=== PATIENT | female | born 1975 | race Caucasian/White ===

== ENCOUNTER 2016-04-12 18:07 | Inpatient (IN) | payer OTHER, BC ==
[~2016-04-12] VITALS: Ht 165.1 cm; Wt 94.1 kg
[~2016-04-12 18:07] MED LIST: ACAR100T9 PO; ASPI1TAB PO; CETI10CA PO; CLIN-44 PO; CYCL5TAB PO; HYDR-2666 PO; IBUP-1027 PO; INSU100I13 SQ; LEVO1TBD PO; LORA10TA68 PO; METF10002 PO; METO10TA81 PO; PRED50TA PO
[2016-04-12] MEDS ORDERED: VANCOMYCIN 1.75 GM in IV NORMAL SALINE 500ML BAG 500 ML IV ONE (19:00)
[2016-04-12] MEDS ORDERED: IV NORMAL SALINE 1000ML BAG 1,000 ML IV ONE (19:00)
[2016-04-12 19:16] LABS: BASO % 0 % (0-3); EOS % 2 % (0-3); HEMATOCRIT 43.6 % (36.0-47.0); HEMOGLOBIN 14.3 g/dL (12.0-15.5); LYMPH # 2.7 x10^3/uL (1.0-4.8); LYMPH % 24 % (24-48); MEAN CORPUSCULAR HEMOGLOBIN 27 pg (25-35); MEAN CORPUSCULAR HGB CONC 33 g/dL (31-37); MEAN CORPUSCULAR VOLUME 83 fL (79-100); MONO % 6 % (0-9); NEUT % 69 % (31-73); PLATELET COUNT 389 x10^3/uL (140-400); RED BLOOD COUNT 5.28 x10^6/uL (3.50-5.40); WHITE BLOOD COUNT 11.4 x10^3/uL (4.0-11.0)
[2016-04-12] MEDS ORDERED: METO50TA2 PO (19:19)
[2016-04-12] MEDS ORDERED: GABA-586 PO (19:19)
[2016-04-12] MEDS ORDERED: HYDR50TA6 PO (19:21)
[2016-04-12] MEDS ORDERED: GLIP10TA13 PO (19:22)
[2016-04-12 19:24] LABS: CALCIUM 9.2 mg/dL (8.5-10.1); CREATININE 0.8 mg/dL (0.6-1.0); GFR 80.3; POTASSIUM 3.2 mmol/L (3.5-5.1)
[2016-04-12] MEDS ORDERED: DOXY100C2 PO (19:25)
[2016-04-12] MEDS ORDERED: HYDR25TA PO (19:25)
[2016-04-12] MEDS ORDERED: DAPA10TA PO (19:25)
[2016-04-12] MEDS ORDERED: ONDANSETRON PF 4 MG/2 ML VIAL. IV PRN ×2 (19:30→19:45)
[2016-04-12] MEDS ORDERED: ACETAMINOPHEN 325 MG TABLET. PO PRN ×2 (19:30→19:45)
--- NOTE | 2016-04-12 19:34 | PHYS DOC ---
Past Medical History Past Medical History: Diabetes-Type II, Hypertension Additional Past Medical Histor: Gastroparesis Past Surgical History: Additional Past Surgical Histo: Laparoscopy, D&C Alcohol Use: None Drug Use: None Adult General Chief Complaint Chief Complaint: CELLULITIS HPI HPI This is a 40-year-old female with known history of diabetes that's had an ongoing facial cellulitis that has not resolved despite taking multiple antibiotics. Patient states she has finished a course of Keflex and Clindamycin as well as several IM injections of Rocephin. Patient additionally states she is on day 2 of a course of doxycycline but states the redness and pain to her face has worsened. She additionally was seen by dental coordinator and had wound cultures that were negative for staph and showed only RBCs. She denies any fever or chills. She denies any nausea or vomiting. She denies any significant headache. She additionally states she recently had a CT of her maxillofacial area that did not demonstrate any significant findings other than her ongoing cellulitis. Review of Systems Review of Systems Constitutional: Denies fever or chills [] Eyes: Denies change in visual acuity, redness, or eye pain [] HENT: Denies nasal congestion or sore throat [] Respiratory: Denies cough or shortness of breath [] Cardiovascular: No additional information not addressed in HPI [] GI: Denies abdominal pain, nausea, vomiting, bloody stools or diarrhea [] : Denies dysuria or hematuria [] Musculoskeletal: Denies back pain or joint pain [] Integument: Denies rash or skin lesions [] Neurologic: Denies headache, focal weakness or sensory changes [] Endocrine: Denies polyuria or polydipsia [] Allergies Allergies Allergies Coded Allergies Type Severity Reaction Last Updated Verified Sulfa (Sulfonamide Antibiotics) Allergy Intermediate 01/25/14 No piperacillin Allergy Intermediate HIVES 04/01/16 Yes strawberry Allergy Intermediate 01/25/14 No tazobactam Allergy Intermediate HIVES 04/01/16 Yes Physical Exam Physical Exam Constitutional: Well developed, well nourished, no acute distress, non-toxic appearance. [] HENT: Normocephalic, large amount of redness and tenderness to palpation of the central portion of the face, bilateral external ears normal, oropharynx moist, no oral exudates, nose normal. [] Eyes: PERRLA, EOMI, conjunctiva normal, no discharge. [] Neck: Normal range of motion, no tenderness, supple, no stridor. [] Cardiovascular:Heart rate regular rhythm, no murmur [] Lungs & Thorax: Bilateral breath sounds clear to auscultation [] Abdomen: Bowel sounds normal, soft, no tenderness, no masses, no pulsatile masses. [] Skin: Warm, dry, no erythema, no rash. [] Back: No tenderness, no CVA tenderness. [] Extremities: No tenderness, no cyanosis, no clubbing, ROM intact, no edema. [] Neurologic: Alert and oriented X 3, normal motor function, normal sensory function, no focal deficits noted. [] Psychologic: Affect normal, judgement normal, mood normal. [] Current Patient Data Vital Signs Vital Signs Date Time Temp Pulse Resp B/P Pulse Ox O2 Delivery O2 Flow Rate FiO2 04/12/16 18:29 100 20 162/97 98 Room Air EKG EKG [] Radiology/Procedures Radiology/Procedures [] Course & Med Decision Making Course & Med Decision Making Pertinent Labs and Imaging studies reviewed. (See chart for details) This 32-year-old female with ongoing facial cellulitis will be admitted to the hospital with a infectious disease consult. Her bloodwork reveals a slightly elevated white count of 11 but no other acute findings. I ordered the patient a dose of IV vancomycin and discuss the need for admission with the hospitalist, Dr. Clemente, who agreed to accept the patient with infectious disease consult. Her infection is consistent with erisepylas that is resistant to multiple oral antibiotics. Dragon Disclaimer Dragon Disclaimer This electronic medical record was generated, in whole or in part, using a voice recognition dictation system. Departure Departure Impression: Primary Impression: Facial cellulitis Disposition: ADMITTED INPATIENT Admitting Physician: Augustina Clemente Condition: STABLE Referrals: YASSINE DELANEY MD (PCP) TONYA LOPEZ DO Apr 12, 2016 19:34
--- NOTE | 2016-04-12 19:38 | PDOC1 ---
History and Physical Date of Admission Date of Admission 04/12/16 Identification/Chief Complaint Chief Complaint facial redness Problems: Source Source: Chart review, Patient History of Present Illness History of Present Illness Patient is a 40 year old female who presents with cellulitis to ER for 16days. Pt came to ER before ,for same reason, also fu with PCP dr. Colunga and Derm dr. Solis in the past 2 weeks. Was given keflex for 7days, then clinda, then rocephin IM, currently on doxy for 2 days, also took prednisone for 5days , felt good with it for 2 days. Denies fever, chills, cough sob. She was also started with gabapentin for 2 days, feels the facial pain is slightly better. However, she still feels pretty much pain, and redness never better, so came today. Also tried multiple local treatment wo improvement. 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 Past Medical History Cardiovascular: HTN GI: Other Renal/: Other Endocrine: Diabetes Past Surgical History Past Surgical History: , Other Family History Family History: Cancer, Hypertension Social History Smoke: No ALCOHOL: none Drugs: None Current Problem List Problem List Problems Medical Problems: (1) Cellulitis Status: Acute Current Medications Current Medications Current Medications Medications (Trade) Dose Ordered Sig/Ryley Start Time Stop Time Status Last Admin Dose Admin Sodium Chloride (Iv Sodium Chloride 0.9% 1000ml Bag) 1,000 ml @ 100 mls/hr 1X ONCE 04/12/16 19:00 04/13/16 04:59 04/12/16 19:14 100 MLS/HR Vancomycin HCl 1.75 gm/Sodium Chloride 500 ml @ 250 mls/hr 1X ONCE 04/12/16 19:00 04/12/16 20:59 04/12/16 19:12 250 MLS/HR Allergies Allergies Allergies Coded Allergies Type Severity Reaction Last Updated Verified Sulfa (Sulfonamide Antibiotics) Allergy Intermediate 01/25/14 No piperacillin Allergy Intermediate HIVES 04/01/16 Yes strawberry Allergy Intermediate 01/25/14 No tazobactam Allergy Intermediate HIVES 04/01/16 Yes ROS Review of System CONSTITUTIONAL: No fever or chills EYES: No recent changes SKIN: No rash or itching CARDIOVASCULAR: No chest pain, syncope, palpitations, or edema RESPIRATORY: No SOB or cough GASTROINTESTINAL: No nausea, vomiting or abdominal pain NEUROLOGICAL: No headaches or weakness ENDOCRINE: No cold or heat intolerance GENITOURINARY: No urgency or frequency of urination MUSCULOSKELETAL: No back pain or joint pain LYMPHATICS: No enlarged lymph nodes PSYCHIATRIC: No anxiety or depression Physical Exam Physical Exam GEN.: No apparent distress. Alert and oriented. HEENT: Head is normocephalic, atraumatic NECK: Supple. LUNGS: Clear to auscultation. HEART: RRR, S1, S2 present. Peripheral pulses intact ABDOMEN: Soft, nontender. Positive bowel sounds. EXTREMITIES: Without any cyanosis. NEUROLOGIC: Normal speech, normal tone PSYCHIATRIC: Normal affect, normal mood. SKIN: middle face including the nose is bright erythematous, with tenderness. no exudate now, but said has it before. Vitals Vitals Vital Signs Date Time Temp Pulse Resp B/P Pulse Ox O2 Delivery O2 Flow Rate FiO2 04/12/16 18:29 100 20 162/97 98 Room Air Labs Labs Laboratory Tests Test 04/12/16 19:00 White Blood Count 11.4x10^3/uL (4.0-11.0) Red Blood Count 5.28x10^6/uL (3.50-5.40) Hemoglobin 14.3g/dL (12.0-15.5) Hematocrit 43.6% (36.0-47.0) Mean Corpuscular Volume 83fL (79-100) Mean Corpuscular Hemoglobin 27pg (25-35) Mean Corpuscular Hemoglobin Concent 33g/dL (31-37) Red Cell Distribution Width 13.0% (11.5-14.5) Platelet Count 389x10^3/uL (140-400) Neutrophils (%) (Auto) 69% (31-73) Lymphocytes (%) (Auto) 24% (24-48) Monocytes (%) (Auto) 6% (0-9) Eosinophils (%) (Auto) 2% (0-3) Basophils (%) (Auto) 0% (0-3) Neutrophils # (Auto) 7.8x10^3uL (1.8-7.7) Lymphocytes # (Auto) 2.7x10^3/uL (1.0-4.8) Monocytes # (Auto) 0.7x10^3/uL (0.0-1.1) Eosinophils # (Auto) 0.2x10^3/uL (0.0-0.7) Basophils # (Auto) 0.0x10^3/uL (0.0-0.2) Laboratory Tests Test 04/12/16 19:00 White Blood Count 11.4x10^3/uL (4.0-11.0) Red Blood Count 5.28x10^6/uL (3.50-5.40) Hemoglobin 14.3g/dL (12.0-15.5) Hematocrit 43.6% (36.0-47.0) Mean Corpuscular Volume 83fL (79-100) Mean Corpuscular Hemoglobin 27pg (25-35) Mean Corpuscular Hemoglobin Concent 33g/dL (31-37) Red Cell Distribution Width 13.0% (11.5-14.5) Platelet Count 389x10^3/uL (140-400) Neutrophils (%) (Auto) 69% (31-73) Lymphocytes (%) (Auto) 24% (24-48) Monocytes (%) (Auto) 6% (0-9) Eosinophils (%) (Auto) 2% (0-3) Basophils (%) (Auto) 0% (0-3) Neutrophils # (Auto) 7.8x10^3uL (1.8-7.7) Lymphocytes # (Auto) 2.7x10^3/uL (1.0-4.8) Monocytes # (Auto) 0.7x10^3/uL (0.0-1.1) Eosinophils # (Auto) 0.2x10^3/uL (0.0-0.7) Basophils # (Auto) 0.0x10^3/uL (0.0-0.2) VTE Prophylaxis Ordered VTE Prophylaxis Devices: Yes VTE Pharmacological Prophylaxi: Yes Assessment/Plan Assessment/Plan 1. facial redness, 2/2 cellulitis/erysipelas 2. dm2 3. HTN 4. gastroparesis plan: 1. will get ID consult 2. will start with vanco and meropenum for now 3. cont home meds, SSI,slightly decrease lantus to 30u qhs dvt ppx ISAIAH BENITEZ MD Apr 12, 2016 19:38
[2016-04-12] MEDS ORDERED: VANCOMYCIN PER PHARMACY MC PRN (19:45)
[2016-04-12] MEDS ORDERED: NON FORMULARY ITEM (Loratadine (Claritin) 10 MG) PO PRN (19:45)
[2016-04-12] MEDS ORDERED: DEXTROSE 50% 25 GM / 50ML DISP.SYRIN. IV PRN (19:45)
[2016-04-12] MEDS ORDERED: ASA/APAP/CAFFEINE 250/250/65MG TABLET. PO PRN (19:45)
[2016-04-12] MEDS ORDERED: METOCLOPRAMIDE 10 MG TABLET PO PRN (19:45)
[2016-04-12] MEDS ORDERED: POTASSIUM CHLORIDE 20 MEQ TABLET.ER. PO ONE (20:00)
[2016-04-12] MEDS ORDERED: CYCLOBENZAPRINE 10 MG TABLET. PO PRN (20:00)
[2016-04-12] MEDS: HYDROXYZINE PAMOATE 25 MG CAPSULE PO SCH ×2 (21:00→21:37)
[2016-04-12] MEDS ORDERED: INSULIN DETEMIR 300 UNITS/3 ML INSULN.PEN. SQ SCH (21:00)
[2016-04-12] MEDS: METFORMIN 1,000 MG TABLET PO SCH (21:00)
[2016-04-12] MEDS: MEROPENEM 500 MG in IV NORMAL SALINE 50ML 50 ML IV SCH (21:36)
[2016-04-12] MEDS: GABAPENTIN 300 MG CAPSULE. PO SCH (21:37)
[2016-04-12 22:07] VITALS: BP 144/89
[2016-04-12 22:46] VITALS: BP 144/89
--- NOTE | 2016-04-12 23:17 | ACF ---
Admission Forms Criteria CELLULITIS Clinical Indications for Admission to Inpatient Care (Place 'X' for any and all applicable criteria): Admission is indicated for ANY ONE of the following(1)(2)(3)(4)(5): [ ]I. Limb-threatening infection [ ]II. High-risk comorbid condition as indicated by ANY ONE of the following: [ ]a) Uncontrolled diabetes (eg, HbA1c greater than 10% (0.1)) [ ]b) Cirrhosis [ ]c) Neutropenia [ ]d) Asplenia [ ]e) Immunosuppression [ ]f) Symptomatic heart failure [ ]III. Failure of outpatient therapy as indicated by ALL of the following: [ ]a) Progression or no improvement after adequate trial (minimum of 48 hours, with longer period for stable lower extremity infection) [ ]b) Adequate antibiotic regimen as indicated by use of ANY ONE of the following: [ ]i) First-generation cephalosporin (e.g., cephalexin) [ ]ii) Antistaphylococcal penicillin (e.g., dicloxacillin) [ ]iii) Penicillin-allergic patient regimen (clindamycin, extended-spectrum fluoroquinolone, or doxycycline) [ ]iv) Resistant organism (eg, methicillin-resistant Staphylococcus aureus) regimen (6) [ ]c) Outpatient intravenous therapy regimen is not appropriate due to ANY ONE of the following. (7)(8)(9)(10): [ ]i) It was tried and was not successful (eg, progression of infection). [ ]ii) It is not available or cannot be arranged in a clinically appropriate time frame (e.g., the next day). [ ]iii) Clinical presentation (eg, acuity of infection, rapidity of progression, confirmed or suspected bacteremia) is judged to require ALL of the following: [ ]1) Immediate initiation of intravenous therapy ( eg, cannot wait for next day) [ ]2) Intensity of patient monitoring and observation (eg, vital sign measurement, checks for infection progression) that cannot be provided at other than inpatient level of care [ ]IV. Mental status changes [ ]V. Bacteremia [ ]. Hemodynamic instability [ ]VII. Suspected necrotizing soft tissue infection (e.g., gas in tissue)(11)( 12) [ ]VIII. Orbital infection (13)(14) [ ]IX. Associated surgical procedure (e.g., abscess drainage, debridement) not amenable to outpatient, emergency department, or observation care [ ]X. Cutaneous gangrene [ ]XI. High fever (temperature greater than 39.5 degrees C (103.1 degrees F) (oral)) not responsive to outpatient, emergency department, or observation care therapy [X]XIII. Inpatient admission required rather than observation care (Also use Cellulitis: Observation Care as appropriate) because of ANY ONE of the following : [ ]a) Periorbital or perineal infection that is severe or worsening [ ]b) Severe pain requiring acute inpatient management [ ]c) IV fluid to replace significant ongoing (e.g., for over 24 hours) losses (greater than 3L/m2 per day) [ ]d) Compartment syndrome monitoring (17) [ ]e) Strict or protective (eg, laminar flow) isolation [ ]f) Urgent debridement or skin grafting [ ]g) Bone or joint debridement [ ]h) Immediate inpatient surgery [X]i) Other condition, treatment or monitoring requiring inpatient admission Extended stay beyond goal length of stay may be needed for (1)(18): [ ]a) Necrotizing soft tissue infection or fasciitis [ ]b) Gram-negative infection [ ]c) Methicillin-resistant Staphylococcal aureus (MRSA) infection [ ]d) Peripheral venous insufficiency with cellulitis [ ]e) Extensive edema [ ]f) Sepsis or continued Hemodynamic instability [ ]g) Continued high fever or mental status change [ ]h) Bacteremia [ ]i) Active serious comorbid conditions ( eg, heart failure, renal insufficiency) The original [employer] content created by [employer] has been revised. The portions of the content which have been revised are identified through the use of italic text or in bold, and [facility] has neither reviewed nor approved the modified material. All other unmodified content is copyright [employer] Please see references footnoted in the original [employer] edition 2016 Admission Criteria Met?: Yes ZOHAIB FLORES Apr 12, 2016 23:17
[2016-04-13] MEDS ORDERED: CETIRIZINE HCL 10 MG TABLET PO PRN (02:15)
[2016-04-13] MEDS ORDERED: VANCOMYCIN 1.5 GM in IV NORMAL SALINE 500ML BAG 500 ML IV SCH (03:00)
[2016-04-13 03:07] VITALS: BP 139/79
[2016-04-13] MEDS: MEROPENEM 500 MG in IV NORMAL SALINE 50ML 50 ML IV SCH ×3 (05:25→23:11)
[2016-04-13] MEDS: IV NORMAL SALINE 1000ML BAG 1,000 ML IV SCH ×2 (05:29→05:35)
[2016-04-13 05:37] LABS: BASO # 0.1 x10^3/uL (0.0-0.2); BASO % 1 % (0-3); EOS % 2 % (0-3); HEMATOCRIT 38.1 % (36.0-47.0); HEMOGLOBIN 12.7 g/dL (12.0-15.5); LYMPH % 29 % (24-48); MEAN CORPUSCULAR HEMOGLOBIN 28 pg (25-35); MEAN CORPUSCULAR HGB CONC 33 g/dL (31-37); MEAN CORPUSCULAR VOLUME 83 fL (79-100); MONO % 8 % (0-9); NEUT % 60 % (31-73); PLATELET COUNT 319 x10^3/uL (140-400); RED BLOOD COUNT 4.61 x10^6/uL (3.50-5.40); RED CELL DISTRIBUTION WIDTH 13.3 % (11.5-14.5); WHITE BLOOD COUNT 10.4 x10^3/uL (4.0-11.0)
[2016-04-13 05:50] LABS: CALCIUM 8.4 mg/dL (8.5-10.1); CREATININE 0.7 mg/dL (0.6-1.0); GFR 93.6
[2016-04-13 07:15] VITALS: BP 133/88
[2016-04-13] MEDS ORDERED: ACARBOSE 50 MG TABLET PO SCH (08:00)
[2016-04-13] MEDS: INSULIN ASPART 300 UNITS/3 ML INSULN.PEN SQ SCH ×3 (08:00→17:00)
[2016-04-13] MEDS: GLIPIZIDE 5 MG TABLET PO SCH ×2 (08:50→17:47)
[2016-04-13] MEDS: METFORMIN 1,000 MG TABLET PO SCH ×2 (08:50→17:47)
[2016-04-13] MEDS ORDERED: INSULIN DETEMIR 300 UNITS/3 ML INSULN.PEN. SQ SCH (09:00)
[2016-04-13] MEDS ORDERED: LEVONORGESTREL ETH ESTRADIOL PO SCH (09:00)
[2016-04-13] MEDS ORDERED: METOPROLOL TART IMMED RELEASE 50 MG TABLET PO SCH (09:00)
[2016-04-13] MEDS ORDERED: HYDROCHLOROTHIAZIDE 25 MG TABLET PO SCH (09:00)
[2016-04-13] MEDS ORDERED: (Dapagliflozin Propanediol (Farxiga) 10 MG) PO SCH (09:00)
--- NOTE | 2016-04-13 10:19 | PDOC ---
Infectious Disease Note Vital Sign Vital Signs Vital Signs Date Time Temp Pulse Resp B/P Pulse Ox O2 Delivery O2 Flow Rate FiO2 04/13/16 08:55 80 133/88 04/13/16 07:15 97.9 20 97 Room Air 97.9 Labs Lab Laboratory Tests Test 04/12/16 19:00 04/12/16 21:02 04/13/16 04:16 04/13/16 07:40 White Blood Count 11.4x10^3/uL (4.0-11.0) 10.4x10^3/uL (4.0-11.0) Red Blood Count 5.28x10^6/uL (3.50-5.40) 4.61x10^6/uL (3.50-5.40) Hemoglobin 14.3g/dL (12.0-15.5) 12.7g/dL (12.0-15.5) Hematocrit 43.6% (36.0-47.0) 38.1% (36.0-47.0) Mean Corpuscular Volume 83fL (79-100) 83fL (79-100) Mean Corpuscular Hemoglobin 27pg (25-35) 28pg (25-35) Mean Corpuscular Hemoglobin Concent 33g/dL (31-37) 33g/dL (31-37) Red Cell Distribution Width 13.0% (11.5-14.5) 13.3% (11.5-14.5) Platelet Count 389x10^3/uL (140-400) 319x10^3/uL (140-400) Neutrophils (%) (Auto) 69% (31-73) 60% (31-73) Lymphocytes (%) (Auto) 24% (24-48) 29% (24-48) Monocytes (%) (Auto) 6% (0-9) 8% (0-9) Eosinophils (%) (Auto) 2% (0-3) 2% (0-3) Basophils (%) (Auto) 0% (0-3) 1% (0-3) Neutrophils # (Auto) 7.8x10^3uL (1.8-7.7) 6.2x10^3uL (1.8-7.7) Lymphocytes # (Auto) 2.7x10^3/uL (1.0-4.8) 3.0x10^3/uL (1.0-4.8) Monocytes # (Auto) 0.7x10^3/uL (0.0-1.1) 0.8x10^3/uL (0.0-1.1) Eosinophils # (Auto) 0.2x10^3/uL (0.0-0.7) 0.2x10^3/uL (0.0-0.7) Basophils # (Auto) 0.0x10^3/uL (0.0-0.2) 0.1x10^3/uL (0.0-0.2) Sodium Level 137mmol/L (136-145) 140mmol/L (136-145) Potassium Level 3.2mmol/L (3.5-5.1) 3.0mmol/L (3.5-5.1) Chloride Level 97mmol/L (98-107) 103mmol/L (98-107) Carbon Dioxide Level 26mmol/L (21-32) 25mmol/L (21-32) Anion Gap 14 (6-14) 12 (6-14) Blood Urea Nitrogen 12mg/dL (7-20) 9mg/dL (7-20) Creatinine 0.8mg/dL (0.6-1.0) 0.7mg/dL (0.6-1.0) Estimated GFR (Cockcroft-Gault) 80.3 93.6 Glucose Level 133mg/dL (70-99) 109mg/dL (70-99) Calcium Level 9.2mg/dL (8.5-10.1) 8.4mg/dL (8.5-10.1) Glucose (Fingerstick) 77mg/dL (70-99) 99mg/dL (70-99) Objective Assessment Facial cellulitis Leukocytosis DM Plan Plan of Care meropenem and doxy for now Rheumatology consult to rule out Lupus AIMEE PEARSON MD Apr 13, 2016 10:19
[2016-04-13] MEDS: FLUCONAZOLE 100 MG TABLET. PO SCH (11:11)
[2016-04-13 11:13] VITALS: BP 124/85
--- NOTE | 2016-04-13 13:10 | PDOC ---
PROGRESS NOTES Chief Complaint Chief Complaint Facial cellulitis ASSESSMENT AND PLAN: 1. Facial erythema: appreciate Dr Catherine's input. Abx incl merrem and doxy. Rheum consult 2. DM2: welll controlled on home regimen. cont ISS 3. HTN: fair control on home metoprolol. not on CIERRA-I as diabetic? 4. Diabetic gastroparesis: reglan PRN 5. Hypokalemia: worse. replete PO and IV 6. Prophylaxis: loveox Vitals Vitals Vital Signs Date Time Temp Pulse Resp B/P Pulse Ox O2 Delivery O2 Flow Rate FiO2 04/13/16 11:13 98.0 80 20 124/85 98 Room Air 98.0 Physical Exam General: Alert, Oriented X3, Cooperative Heart: Regular rate Lungs: Clear Abdomen: Normal bowel sounds, Soft, No tenderness Extremities: No edema Skin: Other (erythema over malar pominences, nose and phyllum) Labs LABS Laboratory Tests Test 04/12/16 19:00 04/12/16 21:02 04/13/16 04:16 04/13/16 07:40 White Blood Count 11.4x10^3/uL (4.0-11.0) 10.4x10^3/uL (4.0-11.0) Red Blood Count 5.28x10^6/uL (3.50-5.40) 4.61x10^6/uL (3.50-5.40) Hemoglobin 14.3g/dL (12.0-15.5) 12.7g/dL (12.0-15.5) Hematocrit 43.6% (36.0-47.0) 38.1% (36.0-47.0) Mean Corpuscular Volume 83fL (79-100) 83fL (79-100) Mean Corpuscular Hemoglobin 27pg (25-35) 28pg (25-35) Mean Corpuscular Hemoglobin Concent 33g/dL (31-37) 33g/dL (31-37) Red Cell Distribution Width 13.0% (11.5-14.5) 13.3% (11.5-14.5) Platelet Count 389x10^3/uL (140-400) 319x10^3/uL (140-400) Neutrophils (%) (Auto) 69% (31-73) 60% (31-73) Lymphocytes (%) (Auto) 24% (24-48) 29% (24-48) Monocytes (%) (Auto) 6% (0-9) 8% (0-9) Eosinophils (%) (Auto) 2% (0-3) 2% (0-3) Basophils (%) (Auto) 0% (0-3) 1% (0-3) Neutrophils # (Auto) 7.8x10^3uL (1.8-7.7) 6.2x10^3uL (1.8-7.7) Lymphocytes # (Auto) 2.7x10^3/uL (1.0-4.8) 3.0x10^3/uL (1.0-4.8) Monocytes # (Auto) 0.7x10^3/uL (0.0-1.1) 0.8x10^3/uL (0.0-1.1) Eosinophils # (Auto) 0.2x10^3/uL (0.0-0.7) 0.2x10^3/uL (0.0-0.7) Basophils # (Auto) 0.0x10^3/uL (0.0-0.2) 0.1x10^3/uL (0.0-0.2) Sodium Level 137mmol/L (136-145) 140mmol/L (136-145) Potassium Level 3.2mmol/L (3.5-5.1) 3.0mmol/L (3.5-5.1) Chloride Level 97mmol/L (98-107) 103mmol/L (98-107) Carbon Dioxide Level 26mmol/L (21-32) 25mmol/L (21-32) Anion Gap 14 (6-14) 12 (6-14) Blood Urea Nitrogen 12mg/dL (7-20) 9mg/dL (7-20) Creatinine 0.8mg/dL (0.6-1.0) 0.7mg/dL (0.6-1.0) Estimated GFR (Cockcroft-Gault) 80.3 93.6 Glucose Level 133mg/dL (70-99) 109mg/dL (70-99) Calcium Level 9.2mg/dL (8.5-10.1) 8.4mg/dL (8.5-10.1) Glucose (Fingerstick) 77mg/dL (70-99) 99mg/dL (70-99) Test 04/13/16 11:30 Glucose (Fingerstick) 167mg/dL (70-99) Review of Systems Review of Systems erythema better acc. her. no fevers or chil Comment Review of Relevant I have reviewed the following items rianna (where applicable) has been applied. Labs Laboratory Tests Test 04/12/16 19:00 04/12/16 21:02 04/13/16 04:16 04/13/16 07:40 White Blood Count 11.4x10^3/uL (4.0-11.0) 10.4x10^3/uL (4.0-11.0) Red Blood Count 5.28x10^6/uL (3.50-5.40) 4.61x10^6/uL (3.50-5.40) Hemoglobin 14.3g/dL (12.0-15.5) 12.7g/dL (12.0-15.5) Hematocrit 43.6% (36.0-47.0) 38.1% (36.0-47.0) Mean Corpuscular Volume 83fL (79-100) 83fL (79-100) Mean Corpuscular Hemoglobin 27pg (25-35) 28pg (25-35) Mean Corpuscular Hemoglobin Concent 33g/dL (31-37) 33g/dL (31-37) Red Cell Distribution Width 13.0% (11.5-14.5) 13.3% (11.5-14.5) Platelet Count 389x10^3/uL (140-400) 319x10^3/uL (140-400) Neutrophils (%) (Auto) 69% (31-73) 60% (31-73) Lymphocytes (%) (Auto) 24% (24-48) 29% (24-48) Monocytes (%) (Auto) 6% (0-9) 8% (0-9) Eosinophils (%) (Auto) 2% (0-3) 2% (0-3) Basophils (%) (Auto) 0% (0-3) 1% (0-3) Neutrophils # (Auto) 7.8x10^3uL (1.8-7.7) 6.2x10^3uL (1.8-7.7) Lymphocytes # (Auto) 2.7x10^3/uL (1.0-4.8) 3.0x10^3/uL (1.0-4.8) Monocytes # (Auto) 0.7x10^3/uL (0.0-1.1) 0.8x10^3/uL (0.0-1.1) Eosinophils # (Auto) 0.2x10^3/uL (0.0-0.7) 0.2x10^3/uL (0.0-0.7) Basophils # (Auto) 0.0x10^3/uL (0.0-0.2) 0.1x10^3/uL (0.0-0.2) Sodium Level 137mmol/L (136-145) 140mmol/L (136-145) Potassium Level 3.2mmol/L (3.5-5.1) 3.0mmol/L (3.5-5.1) Chloride Level 97mmol/L (98-107) 103mmol/L (98-107) Carbon Dioxide Level 26mmol/L (21-32) 25mmol/L (21-32) Anion Gap 14 (6-14) 12 (6-14) Blood Urea Nitrogen 12mg/dL (7-20) 9mg/dL (7-20) Creatinine 0.8mg/dL (0.6-1.0) 0.7mg/dL (0.6-1.0) Estimated GFR (Cockcroft-Gault) 80.3 93.6 Glucose Level 133mg/dL (70-99) 109mg/dL (70-99) Calcium Level 9.2mg/dL (8.5-10.1) 8.4mg/dL (8.5-10.1) Glucose (Fingerstick) 77mg/dL (70-99) 99mg/dL (70-99) Test 04/13/16 11:30 Glucose (Fingerstick) 167mg/dL (70-99) Laboratory Tests Test 04/12/16 19:00 04/12/16 21:02 04/13/16 04:16 04/13/16 07:40 White Blood Count 11.4x10^3/uL (4.0-11.0) 10.4x10^3/uL (4.0-11.0) Red Blood Count 5.28x10^6/uL (3.50-5.40) 4.61x10^6/uL (3.50-5.40) Hemoglobin 14.3g/dL (12.0-15.5) 12.7g/dL (12.0-15.5) Hematocrit 43.6% (36.0-47.0) 38.1% (36.0-47.0) Mean Corpuscular Volume 83fL (79-100) 83fL (79-100) Mean Corpuscular Hemoglobin 27pg (25-35) 28pg (25-35) Mean Corpuscular Hemoglobin Concent 33g/dL (31-37) 33g/dL (31-37) Red Cell Distribution Width 13.0% (11.5-14.5) 13.3% (11.5-14.5) Platelet Count 389x10^3/uL (140-400) 319x10^3/uL (140-400) Neutrophils (%) (Auto) 69% (31-73) 60% (31-73) Lymphocytes (%) (Auto) 24% (24-48) 29% (24-48) Monocytes (%) (Auto) 6% (0-9) 8% (0-9) Eosinophils (%) (Auto) 2% (0-3) 2% (0-3) Basophils (%) (Auto) 0% (0-3) 1% (0-3) Neutrophils # (Auto) 7.8x10^3uL (1.8-7.7) 6.2x10^3uL (1.8-7.7) Lymphocytes # (Auto) 2.7x10^3/uL (1.0-4.8) 3.0x10^3/uL (1.0-4.8) Monocytes # (Auto) 0.7x10^3/uL (0.0-1.1) 0.8x10^3/uL (0.0-1.1) Eosinophils # (Auto) 0.2x10^3/uL (0.0-0.7) 0.2x10^3/uL (0.0-0.7) Basophils # (Auto) 0.0x10^3/uL (0.0-0.2) 0.1x10^3/uL (0.0-0.2) Sodium Level 137mmol/L (136-145) 140mmol/L (136-145) Potassium Level 3.2mmol/L (3.5-5.1) 3.0mmol/L (3.5-5.1) Chloride Level 97mmol/L (98-107) 103mmol/L (98-107) Carbon Dioxide Level 26mmol/L (21-32) 25mmol/L (21-32) Anion Gap 14 (6-14) 12 (6-14) Blood Urea Nitrogen 12mg/dL (7-20) 9mg/dL (7-20) Creatinine 0.8mg/dL (0.6-1.0) 0.7mg/dL (0.6-1.0) Estimated GFR (Cockcroft-Gault) 80.3 93.6 Glucose Level 133mg/dL (70-99) 109mg/dL (70-99) Calcium Level 9.2mg/dL (8.5-10.1) 8.4mg/dL (8.5-10.1) Glucose (Fingerstick) 77mg/dL (70-99) 99mg/dL (70-99) Test 04/13/16 11:30 Glucose (Fingerstick) 167mg/dL (70-99) Medications Current Medications Vancomycin HCl 1.75 gm/Sodium Chloride 500 ml @ 250 mls/hr 1X ONCE IV Last administered on 04/12/16 19:12; Start 04/12/16 at 19:00; Stop 04/12/16 at 20:59 ; Status DC Sodium Chloride (Iv Sodium Chloride 0.9% 1000ml Bag) 1,000 ml @ 100 mls/hr 1X ONCE IV Last administered on 04/12/16 19:14; Start 04/12/16 at 19:00; Stop at 11:21; Status DC Ondansetron HCl 4 mg 4 mg PRN Q8HRS PRN IV NAUSEA/VOMITING; Start 04/12/16 at 19:30; Stop 04/13/16 at 10:59; Status DC Sodium Chloride (Iv Sodium Chloride 0.9% 1000ml Bag) 1,000 ml @ 100 mls/hr Q10H IV Last administered on 04/13/16 05:35; Start 04/12/16 at 19:29; Stop at 11:21; Status DC Acetaminophen (Tylenol) 650 mg PRN Q4HRS PRN PO FEVER Last administered on 04/13 05:34; Start 04/12/16 at 19:30; Stop 04/13/16 at 10:59; Status DC Acetaminophen (Tylenol) 650 mg PRN Q6HRS PRN PO FEVER; Start 04/12/16 at 19:45 Ondansetron HCl (Zofran) 4 mg PRN Q6HRS PRN IV NAUSEA; Start 04/12/16 at 19:45 Acetaminophen/ Hydrocodone Bitart (Lortab 5/325) 1 tab PRN Q6HRS PRN PO PAIN MILD TO MOD; Start 04/12/16 at 19:45 Insulin Aspart (Novolog) 0-9 UNITS TIDWMEALS SQ ; Start 04/13/16 at 08:00 Dextrose 12.5 gm PRN Q15MIN PRN IV SEE COMMENTS; Start 04/12/16 at 19:45 Gabapentin (Neurontin) 300 mg HS PO Last administered on 04/12/16 21:37; Start 04/12/16 at 21:00 Metformin HCl (Glucophage) 1,000 mg BIDWMEALS PO Last administered on 08:50; Start 04/12/16 at 21:00; Stop 04/13/16 at 11:00; Status DC Metoclopramide HCl (Reglan) 10 mg PRN TID PRN PO INDIGESTION; Start 04/12/16 at 19:45 Metoprolol Tartrate (Lopressor) 50 mg DAILY PO Last administered on 04/13/16 08:55; Start 04/13/16 at 09:00; Stop 04/13/16 at 11:01; Status DC Acarbose (Precose) 100 mg TIDWMEALS PO ; Start 04/13/16 at 08:00; Stop 04/13/16 at 10:58; Status DC Acetaminophen/ Aspirin/Caffeine (Excedrin Migraine) 2 tab PRN BID PRN PO PAIN; Start 04/12/16 at 19:45 Cetirizine HCl (Zyrtec) 10 mg PRN DAILY PRN PO ALLERGIES Last administered on 02:18; Start 04/13/16 at 02:15 Cyclobenzaprine HCl (Flexeril) 5 mg PRN TID PRN PO MUSCLE PAIN; Start 04/12/16 at 20:00 Non-Formulary Medication 10 mg DAILY PO Last administered on 04/13/16 08:51; Start 04/13/16 at 09:00; Stop 04/13/16 at 11:01; Status DC Glipizide (Glucotrol) 10 mg BIDBFRMEAL PO Last administered on 04/13/16 08:50 ; Start 04/13/16 at 07:30 Hydrochlorothiazide (Hydrodiuril) 25 mg DAILY PO Last administered on 08:55; Start 04/13/16 at 09:00; Stop 04/13/16 at 11:00; Status DC Hydroxyzine Pamoate (Vistaril) 25 mg HS PO Last administered on 04/12/16 21:37 ; Start 04/12/16 at 20:00; Stop 04/13/16 at 00:17; Status DC Non-Formulary Medication 1 each DAILY PO Last administered on 04/13/16 08:52; Start 04/13/16 at 09:00; Stop 04/13/16 at 11:01; Status DC Non-Formulary Medication 10 mg PRN DAILY PRN PO ALLERGIES; Start 04/12/16 at 19 :45; Status UNV Insulin Detemir (Levemir) 30 units QHS SQ ; Start 04/12/16 at 21:00; Stop at 00:18; Status DC Vancomycin HCl 1 each 1 each PRN DAILY PRN MC SEE COMMENTS Last administered on 04/12/16 19:53; Start 04/12/16 at 19:45; Stop 04/13/16 at 10:12; Status DC Vancomycin HCl 1.5 gm/Sodium Chloride 500 ml @ 250 mls/hr Q8H IV Last administered on 04/13/16 02:21; Start 04/13/16 at 03:00; Stop 04/13/16 at 10:12 ; Status DC Meropenem/Sodium Chloride (Merrem/Iv Sodium Chloride 0.9% 50ml) 50 ml @ 100 mls /hr Q8HRS IV Last administered on 04/13/16 05:25; Start 04/12/16 at 22:00 Potassium Chloride (Klor-Con) 40 meq 1X ONCE PO Last administered on 21:37; Start 04/12/16 at 20:00; Stop 04/12/16 at 20:01; Status DC Vancomycin HCl 1 each 1X ONCE MC ; Start 04/13/16 at 18:30; Stop 04/13/16 at 18 :30; Status DC Hydroxyzine Pamoate (Vistaril) 25 mg DAILYWSUP PO ; Start 04/13/16 at 17:00 Insulin Detemir (Levemir) 30 units DAILY SQ ; Start 04/13/16 at 09:00; Stop at 10:58; Status DC Fluconazole (Diflucan) 400 mg DAILY PO Last administered on 04/13/16 11:11; Start 04/13/16 at 11:00 Insulin Detemir (Levemir) 40 units DAILY SQ ; Start 04/13/16 at 10:58 Hydrochlorothiazide (Hydrodiuril) 25 mg DAILY@05 PO ; Start 04/14/16 at 05:00 Metformin HCl (Glucophage) 1,000 mg BID@05,17 PO ; Start 04/13/16 at 17:00 Metoprolol Tartrate (Lopressor) 50 mg DAILY@05 PO ; Start 04/14/16 at 05:00 Non-Formulary Medication 10 mg DAILY@05 PO ; Start 04/14/16 at 05:00 Non-Formulary Medication 1 each DAILY@05 PO ; Start 04/14/16 at 05:00 Active Scripts Active Hydrocodone-Apap 5-325 (Hydrocodone Bit/Acetaminophen) 1 Each Tablet 1 Tab PO PRN Q6HRS PRN Prednisone 50 Mg Tablet 1 Tab PO DAILY Clindamycin Hcl 150 Mg Capsule 3 Cap PO TID 10 Days Reported Farxiga (Dapagliflozin Propanediol) 10 Mg Tablet 10 Mg PO DAILY Doxycycline Hyclate 100 Mg Capsule 1 Cap PO BID Hydroxyzine Hcl 25 Mg Tablet 1-2 Tab PO HS Glipizide 10 Mg Tablet 1 Tab PO BID Hydrochlorothiazide Tablet (Hydrochlorothiazide) 50 Mg Tablet 25 Mg PO DAILY Metoprolol Tartrate 50 Mg Tablet 1 Tab PO DAILY Gabapentin 300 Mg Capsule 300 Mg PO HS Ibuprofen 400 Mg Tablet 1 Tab PO PRN Q6HRS PRN Zyrtec (Cetirizine Hcl) 10 Mg Capsule 10 Mg PO PRN DAILY PRN Claritin (Loratadine) 10 Mg Tablet 10 Mg PO PRN DAILY PRN Jolessa (Levonorgestrel-Eth Estradiol) 1 Each Tbdspk.3mo 1 Each PO DAILY Analgesic Tablet (Aspirin/Caffeine) 1 Each Tablet 2 Each PO PRN BID PRN Reglan (Metoclopramide Hcl) 10 Mg Tablet 1 Tab PO TID PRN Cyclobenzaprine Hcl 5 Mg Tablet 5 Mg PO TID PRN Lantus Solostar (Insulin Glargine,Hum.rec.anlog) 100 Unit/1 Ml Insuln.pen 40 Unit SQ DAILY Precose (Acarbose) 100 Mg Tablet 100 Mg PO TID Metformin Hcl 1,000 Mg Tablet 1 Tab PO BID Vitals/I & O Vital Sign - Last 24 Hours 04/12/16 04/12/16 04/12/16 04/12/16 18:29 19:14 19:45 22:07 Temp 98.1 98.1 Pulse 100 85 Resp 20 20 B/P 162/97 128/90 127/89 144/89 Pulse Ox 98 98 O2 Delivery Room Air Room Air 04/12/16 04/12/16 04/13/16 04/13/16 22:46 22:56 03:07 07:15 Temp 98.1 97.9 97.9 98.1 97.9 97.9 Pulse 85 91 80 Resp 18 20 B/P 144/89 139/79 133/88 Pulse Ox 98 97 97 O2 Delivery Room Air Room Air Room Air 04/13/16 04/13/16 04/13/16 07:30 08:55 11:13 Temp 98.0 98.0 Pulse 80 80 Resp 20 B/P 133/88 124/85 Pulse Ox 98 O2 Delivery Room Air Room Air Intake and Output 04/12/16 04/12/16 04/13/16 14:59 22:59 06:59 Intake Total 875 ml Balance 875 ml MANISH FIGUEROA MD Apr 13, 2016 13:10
[2016-04-13 15:02] VITALS: BP 124/98
[2016-04-13 19:00] VITALS: BP 134/91
[2016-04-13] MEDS: HYDROXYZINE PAMOATE 25 MG CAPSULE PO SCH (19:53)
[2016-04-13] MEDS: GABAPENTIN 300 MG CAPSULE. PO SCH (19:53)
[2016-04-13 22:55] VITALS: BP 137/77
[2016-04-14 03:00] VITALS: BP 125/78
[2016-04-14] MEDS: LEVONORGESTREL ETH ESTRADIOL PO SCH (05:00)
[2016-04-14] MEDS: (Dapagliflozin Propanediol (Farxiga) 10 MG) PO SCH (05:00)
[2016-04-14] MEDS: MEROPENEM 500 MG in IV NORMAL SALINE 50ML 50 ML IV SCH ×3 (05:40→21:06)
[2016-04-14] MEDS: HYDROCHLOROTHIAZIDE 25 MG TABLET PO SCH (05:41)
[2016-04-14] MEDS: METFORMIN 1,000 MG TABLET PO SCH ×2 (05:41→17:11)
[2016-04-14] MEDS: METOPROLOL TART IMMED RELEASE 50 MG TABLET PO SCH (05:42)
[2016-04-14] MEDS: GLIPIZIDE 5 MG TABLET PO SCH ×2 (05:50→17:12)
[2016-04-14 07:00] VITALS: BP 120/84
[2016-04-14] MEDS: INSULIN ASPART 300 UNITS/3 ML INSULN.PEN SQ SCH ×3 (08:00→17:00)
[2016-04-14] MEDS: FLUCONAZOLE 100 MG TABLET. PO SCH (08:15)
[2016-04-14] MEDS: INSULIN DETEMIR 300 UNITS/3 ML INSULN.PEN. SQ SCH (08:19)
[2016-04-14] MEDS: HYDROCODONE/APAP 5/325MG TABLET. PO PRN ×2 (08:21→21:08)
--- NOTE | 2016-04-14 08:39 | PDOC ---
Infectious Disease Note Subjective Subjective pt about same, no change in rash, some swelling and pain in to lips ROS ROS GEN: Denies fevers, chills, sweats HEENT: Denies blurred vision, sore throat CV: Denies chest pain RESP: Denies shortness of air, cough GI: Denies n/v/d NEURO: Denies confusion, dizziness MSK: Denies weakness, joint pain/swelling Vital Sign Vital Signs Vital Signs Date Time Temp Pulse Resp B/P Pulse Ox O2 Delivery O2 Flow Rate FiO2 04/14/16 08:21 16 Room Air 04/14/16 07:00 97.9 74 120/84 97 97.9 Physical Exam PHYSICAL EXAM GENERAL: NAD, Alert HEENT: PERRL, OC/OP,, no change in rash NECK: Supple, no JVD, no LN LUNGS: Clear HEART: S1S2, no gallop, no murmur ABD: Soft, NT, no organomegaly, no rebound EXT: No edema, no cyanosis CLOTH PACKER: Alert, oriented x 3, no focal neurologic deficit SKIN: No rash IV: ok Labs Lab Laboratory Tests Test 04/13/16 11:30 04/13/16 16:40 04/13/16 21:05 04/14/16 08:11 Glucose (Fingerstick) 167mg/dL (70-99) 227mg/dL (70-99) 174mg/dL (70-99) 108mg/dL (70-99) Objective Assessment Facial cellulitis// likely has Lupus Leukocytosis DM Plan Plan of Care meropenem and doxy for now d/w dr Lr, check crp, sed rate, getachew, and medrol dose pack d/c AIMEE Richardson MD Apr 14, 2016 08:39
[2016-04-14] MEDS: PREDNISONE 20 MG TABLET PO SCH (10:26)
[2016-04-14 11:04] VITALS: BP 145/90
[2016-04-14] MEDS ORDERED: GADOBUTROL 10 MMOL/10 ML VIAL IV ONE (11:30)
--- NOTE | 2016-04-14 12:54 | PDOC ---
PROGRESS NOTES Chief Complaint Chief Complaint Facial cellulitis ASSESSMENT AND PLAN: 1. Facial erythema: appreciate Dr Catherine's input. Abx incl merrem and doxy started, but no clinical improvement. MRI face with cellulitis only, no abscess. D/W Dr Catherine: suspect Lupus: start steroids. Rheum consult not available, but curbsided: O/P F/U 2. DM2: welll controlled on home regimen. cont ISS 3. HTN: fair control on home metoprolol. not on CIERRA-I as diabetic? 4. Diabetic gastroparesis: reglan PRN 5. Hypokalemia: worse. replete PO and IV 6. Prophylaxis: lovenox Vitals Vitals Vital Signs Date Time Temp Pulse Resp B/P Pulse Ox O2 Delivery O2 Flow Rate FiO2 04/14/16 11:04 97.7 78 18 145/90 96 Room Air 97.7 Physical Exam General: Alert, Oriented X3, Cooperative Heart: Regular rate Lungs: Clear Abdomen: Normal bowel sounds, Soft, No tenderness Extremities: No edema Skin: Other (erythema over malar pominences, nose and phyllum) Labs LABS Laboratory Tests Test 04/13/16 16:40 04/13/16 21:05 04/14/16 08:11 04/14/16 09:10 Glucose (Fingerstick) 227mg/dL (70-99) 174mg/dL (70-99) 108mg/dL (70-99) Erythrocyte Sedimentation Rate 34 (0-25) Test 04/14/16 10:55 Glucose (Fingerstick) 118mg/dL (70-99) Review of Systems Review of Systems essentially unchanged, min worsening below nose. MANISH FIGUEROA MD Apr 14, 2016 12:54
--- NOTE | 2016-04-14 14:14 | RAD ---
PROCEDURE MRI of the face without and with contrast 04/14/2016 HISTORY Facial pain, redness and swelling on cheeks and nose. Recurrent facial cellulitis. TECHNIQUE Unenhanced T1 weighted and fat saturated T2 weighted sagittal, axial and coronal images of the face and orbits were obtained. After the intravenous administration 9 cc of Gadovist, enhanced T1 weighted fat saturated sagittal, axial and coronal images were obtained. FINDINGS Soft tissue swelling and increased signal intensity is seen within the subcutaneous fat on the T2 weighted images of the face inferior to the orbits, bilaterally along with the nose. These findings would be consistent with the patient's history of a cellulitis. No abnormal fluid collection is seen to suggest evidence of an abscess. The orbits are within normal limits. The paranasal sinuses are clear. No area of abnormal signal intensity is seen involving the brain parenchyma. IMPRESSION Findings are seen consistent with the patient's history of a facial cellulitis. No abscess is seen. Electronically signed by: Louie Krause MD (Apr 14, 2016 14:12:32)
[2016-04-14 14:56] VITALS: BP 109/82
[2016-04-14] MEDS: HYDROXYZINE PAMOATE 25 MG CAPSULE PO SCH (17:11)
[2016-04-14 19:00] VITALS: BP 144/91
[2016-04-14] MEDS: GABAPENTIN 300 MG CAPSULE. PO SCH (21:07)
[2016-04-14 23:00] VITALS: BP 138/93
[2016-04-15 03:00] VITALS: BP 120/72
[2016-04-15 04:52] VITALS: BP 119/84
[2016-04-15] MEDS: METOPROLOL TART IMMED RELEASE 50 MG TABLET PO SCH (04:54)
[2016-04-15] MEDS: LEVONORGESTREL ETH ESTRADIOL PO SCH (04:55)
[2016-04-15] MEDS: METFORMIN 1,000 MG TABLET PO SCH ×2 (04:55→17:00)
[2016-04-15] MEDS: (Dapagliflozin Propanediol (Farxiga) 10 MG) PO SCH (04:55)
[2016-04-15] MEDS: HYDROCHLOROTHIAZIDE 25 MG TABLET PO SCH (04:57)
[2016-04-15] MEDS: MEROPENEM 500 MG in IV NORMAL SALINE 50ML 50 ML IV SCH ×2 (05:01→12:29)
[2016-04-15] MEDS: GLIPIZIDE 5 MG TABLET PO SCH ×2 (05:06→16:30)
[2016-04-15] MEDS: INSULIN DETEMIR 300 UNITS/3 ML INSULN.PEN. SQ SCH (05:10)
--- NOTE | 2016-04-15 05:48 | CONS ---
DATE OF CONSULTATION: 04/13/2016 REQUESTING PHYSICIAN: Dr. Clemente. REASON FOR CONSULTATION: Facial cellulitis. HISTORY OF PRESENT ILLNESS: This is a 40-year-old female who has developed facial cellulitis in December/January area where she got Keflex and it responded and went away until it came back about 16 days ago and now she has been going through the third or fourth round of antibiotics including Keflex, Rocephin, clindamycin and doxycycline and with no improvement, hence she is admitted. The patient also has been to Dr. Solis and there was no help. Lupus has been ruled out by Dr. Colunga. The patient is now started on vancomycin and meropenem and consult has been requested. The patient denies any fever, denies any nausea, vomiting, diarrhea. The patient had a CAT scan of the maxillofacial done, which was negative. The patient is diabetic with reasonably good control. The patient denies any ketoacidosis lately. PAST MEDICAL HISTORY: Positive for hypertension and diabetes, also has had in the past. SOCIAL HISTORY: Negative for smoking, alcohol, illicit drug use. ALLERGIES: LISTED ALLERGIC TO SULFA. THE PATIENT IS LISTED ALSO PIPERACILLIN AND TAZOBACTAM EVIDENTLY GIVING IT TO THE PATIENT, ZOSYN, IT SPILLED ON HER ARM AND SHE HAD A REDNESS, ALTHOUGH THE PATIENT HAS TAKEN PENICILLIN WITHOUT ANY PROBLEM. CURRENT MEDICATIONS: Reviewed. REVIEW OF SYSTEMS: As per HPI, all other systems reviewed are negative. PHYSICAL EXAMINATION: GENERAL: Alert, oriented female, not in distress. VITAL SIGNS: Stable, afebrile. HEENT: NAD. NECK: Supple, no JVP, no lymphadenopathy. LUNGS: Clear. HEART: S1, S2 regular. ABDOMEN: Benign. EXTREMITIES: No edema or cyanosis. SKIN: The patient does have a plastic malar rash on the face. There is some induration to it. There is no necrosis. There is no pus pointing. There is no abscess and at least the nose what I can see through the flashlight is not showing any ulcer or abscess. The patient is neurologically intact. There are no lesions in the mouth either. LABORATORY DATA: White count was 11.4 yesterday. BUN and creatinine is normal. Urinalysis unremarkable. She has had some cultures done, which I am not sure was just from the skin. It is negative. The nose cultures were negative for MRSA. IMPRESSION: 1. Facial cellulitis. There is a classic appearance of lupus, although evidently has been ruled out. 2. Leukocytosis, most likely from steroids as she received a course of steroids and in fact, it responded very quickly that it went away until steroid was gone and in a few days, then it came back. 3. Diabetes. 4. Hypertension. RECOMMENDATIONS: I would continue meropenem, discontinue vancomycin, add Diflucan. The fact that she responded to steroids quickly, it may still be lupus. I would get Dr. Lr involved to see if seronegative lupus may be there. Also, diabetic patients can have Pseudomonas cellulitis, which will target and the Mucor is a distant possibility, although I do not see any lesions and the CT was negative. Thank you very much, Dr. Clemente, for giving me the opportunity to participate in this patient's care. AIMEE PEARSON MD DR: SHADI/joanna JOB#: [id number] / [id number]
[2016-04-15 07:15] VITALS: BP 125/86
[2016-04-15] MEDS: INSULIN ASPART 300 UNITS/3 ML INSULN.PEN SQ SCH ×3 (07:51→17:00)
[2016-04-15] MEDS: PREDNISONE 20 MG TABLET PO SCH (08:33)
[2016-04-15] MEDS: FLUCONAZOLE 100 MG TABLET. PO SCH (08:33)
--- NOTE | 2016-04-15 09:38 | PDOC ---
Infectious Disease Note Subjective Subjective feeling much better, pain and redness improving ROS ROS GEN: Denies fevers, chills, sweats HEENT: Denies blurred vision, sore throat CV: Denies chest pain RESP: Denies shortness of air, cough GI: Denies n/v/d NEURO: Denies confusion, dizziness MSK: Denies weakness, joint pain/swelling Vital Sign Vital Signs Vital Signs Date Time Temp Pulse Resp B/P Pulse Ox O2 Delivery O2 Flow Rate FiO2 04/15/16 07:15 98.1 79 18 125/86 96 Room Air 98.1 Physical Exam PHYSICAL EXAM GENERAL: NAD, Alert HEENT: PERRL, OC/OP, malar rash less red NECK: Supple, no JVD, no LN LUNGS: Clear HEART: S1S2, no gallop, no murmur ABD: Soft, NT, no organomegaly, no rebound EXT: No edema, no cyanosis DRESSMAKER OR TAILOR: Alert, oriented x 3, no focal neurologic deficit SKIN: No rash IV: ok Labs Lab Laboratory Tests Test 04/14/16 10:55 04/14/16 16:44 04/14/16 21:08 04/15/16 04:56 Glucose (Fingerstick) 118mg/dL (70-99) 236mg/dL (70-99) 167mg/dL (70-99) 93mg/dL (70-99) Objective Assessment Facial cellulitis// likely has Lupus Leukocytosis DM Plan Plan of Care d/c ok on po medrol dose pack f/u dr Lr on monday/monday d/c antibiotics AIMEE PEARSON MD Apr 15, 2016 09:38
[2016-04-15 11:15] VITALS: BP 122/91
--- NOTE | 2016-04-15 15:40 | PDOC ---
PROGRESS NOTES Chief Complaint Chief Complaint Facial cellulitis ASSESSMENT AND PLAN: 1. Facial erythema: appreciate Dr Catherine's input. Abx incl merrem and doxy started, but no clinical improvement. MRI face with cellulitis only, no abscess. D/W Dr Catherine: suspect Lupus: start steroids. Rheum consult not available, but curbsided: O/P F/U 2. DM2: welll controlled on home regimen. cont ISS 3. HTN: fair control on home metoprolol. not on CIERRA-I as diabetic? 4. Diabetic gastroparesis: reglan PRN 5. Hypokalemia: worse. replete PO and IV 6. Prophylaxis: lovenox Vitals Vitals Vital Signs Date Time Temp Pulse Resp B/P Pulse Ox O2 Delivery O2 Flow Rate FiO2 04/15/16 11:15 97.5 90 20 122/91 98 Room Air 97.5 Physical Exam General: Alert, Oriented X3, Cooperative Heart: Regular rate Lungs: Clear Abdomen: Normal bowel sounds, Soft, No tenderness Extremities: No edema Skin: Other (erythema over malar pominences, nose and phyllum) Labs LABS Laboratory Tests Test 04/14/16 16:44 04/14/16 21:08 04/15/16 04:56 04/15/16 11:19 Glucose (Fingerstick) 236mg/dL (70-99) 167mg/dL (70-99) 93mg/dL (70-99) 132mg/dL (70-99) Review of Systems Review of Systems some improvement in erythema, edema resolved Comment Review of Relevant I have reviewed the following items rianna (where applicable) has been applied. Labs Laboratory Tests Test 04/13/16 16:40 04/13/16 21:05 04/14/16 08:11 04/14/16 09:10 Glucose (Fingerstick) 227mg/dL (70-99) 174mg/dL (70-99) 108mg/dL (70-99) Erythrocyte Sedimentation Rate 34 (0-25) C-Reactive Protein High Sensitivity 18.96mg/L (0.00-3.00) Test 04/14/16 10:55 04/14/16 16:44 04/14/16 21:08 04/15/16 04:56 Glucose (Fingerstick) 118mg/dL (70-99) 236mg/dL (70-99) 167mg/dL (70-99) 93mg/dL (70-99) Test 04/15/16 11:19 Glucose (Fingerstick) 132mg/dL (70-99) Laboratory Tests Test 04/14/16 16:44 04/14/16 21:08 04/15/16 04:56 04/15/16 11:19 Glucose (Fingerstick) 236mg/dL (70-99) 167mg/dL (70-99) 93mg/dL (70-99) 132mg/dL (70-99) Medications Current Medications Vancomycin HCl 1.75 gm/Sodium Chloride 500 ml @ 250 mls/hr 1X ONCE IV Last administered on 04/12/16 19:12; Start 04/12/16 at 19:00; Stop 04/12/16 at 20:59 ; Status DC Sodium Chloride (Iv Sodium Chloride 0.9% 1000ml Bag) 1,000 ml @ 100 mls/hr 1X ONCE IV Last administered on 04/12/16 19:14; Start 04/12/16 at 19:00; Stop at 11:21; Status DC Ondansetron HCl 4 mg 4 mg PRN Q8HRS PRN IV NAUSEA/VOMITING; Start 04/12/16 at 19:30; Stop 04/13/16 at 10:59; Status DC Sodium Chloride (Iv Sodium Chloride 0.9% 1000ml Bag) 1,000 ml @ 100 mls/hr Q10H IV Last administered on 04/13/16 05:35; Start 04/12/16 at 19:29; Stop at 11:21; Status DC Acetaminophen (Tylenol) 650 mg PRN Q4HRS PRN PO FEVER Last administered on 04/13 05:34; Start 04/12/16 at 19:30; Stop 04/13/16 at 10:59; Status DC Acetaminophen (Tylenol) 650 mg PRN Q6HRS PRN PO FEVER; Start 04/12/16 at 19:45 Ondansetron HCl (Zofran) 4 mg PRN Q6HRS PRN IV NAUSEA; Start 04/12/16 at 19:45 Acetaminophen/ Hydrocodone Bitart (Lortab 5/325) 1 tab PRN Q6HRS PRN PO PAIN MILD TO MOD Last administered on 04/14/16 21:08; Start 04/12/16 at 19:45 Insulin Aspart (Novolog) 0-9 UNITS TIDWMEALS SQ ; Start 04/13/16 at 08:00 Dextrose 12.5 gm PRN Q15MIN PRN IV SEE COMMENTS; Start 04/12/16 at 19:45 Gabapentin (Neurontin) 300 mg HS PO Last administered on 04/14/16 21:07; Start 04/12/16 at 21:00 Metformin HCl (Glucophage) 1,000 mg BIDWMEALS PO Last administered on 08:50; Start 04/12/16 at 21:00; Stop 04/13/16 at 11:00; Status DC Metoclopramide HCl (Reglan) 10 mg PRN TID PRN PO INDIGESTION; Start 04/12/16 at 19:45 Metoprolol Tartrate (Lopressor) 50 mg DAILY PO Last administered on 04/13/16 08:55; Start 04/13/16 at 09:00; Stop 04/13/16 at 11:01; Status DC Acarbose (Precose) 100 mg TIDWMEALS PO ; Start 04/13/16 at 08:00; Stop 04/13/16 at 10:58; Status DC Acetaminophen/ Aspirin/Caffeine (Excedrin Migraine) 2 tab PRN BID PRN PO PAIN; Start 04/12/16 at 19:45 Cetirizine HCl (Zyrtec) 10 mg PRN DAILY PRN PO ALLERGIES Last administered on 02:18; Start 04/13/16 at 02:15 Cyclobenzaprine HCl (Flexeril) 5 mg PRN TID PRN PO MUSCLE PAIN; Start 04/12/16 at 20:00 Non-Formulary Medication 10 mg DAILY PO Last administered on 04/13/16 08:51; Start 04/13/16 at 09:00; Stop 04/13/16 at 11:01; Status DC Glipizide (Glucotrol) 10 mg BIDBFRMEAL PO Last administered on 04/15/16 05:06 ; Start 04/13/16 at 07:30 Hydrochlorothiazide (Hydrodiuril) 25 mg DAILY PO Last administered on 08:55; Start 04/13/16 at 09:00; Stop 04/13/16 at 11:00; Status DC Hydroxyzine Pamoate (Vistaril) 25 mg HS PO Last administered on 04/12/16 21:37 ; Start 04/12/16 at 20:00; Stop 04/13/16 at 00:17; Status DC Non-Formulary Medication 1 each DAILY PO Last administered on 04/13/16 08:52; Start 04/13/16 at 09:00; Stop 04/13/16 at 11:01; Status DC Non-Formulary Medication 10 mg PRN DAILY PRN PO ALLERGIES; Start 04/12/16 at 19 :45; Status UNV Insulin Detemir (Levemir) 30 units QHS SQ ; Start 04/12/16 at 21:00; Stop at 00:18; Status DC Vancomycin HCl 1 each 1 each PRN DAILY PRN MC SEE COMMENTS Last administered on 04/12/16 19:53; Start 04/12/16 at 19:45; Stop 04/13/16 at 10:12; Status DC Vancomycin HCl 1.5 gm/Sodium Chloride 500 ml @ 250 mls/hr Q8H IV Last administered on 04/13/16 02:21; Start 04/13/16 at 03:00; Stop 04/13/16 at 10:12 ; Status DC Meropenem/Sodium Chloride (Merrem/Iv Sodium Chloride 0.9% 50ml) 50 ml @ 100 mls /hr Q8HRS IV Last administered on 04/15/16 12:29; Start 04/12/16 at 22:00 Potassium Chloride (Klor-Con) 40 meq 1X ONCE PO Last administered on 21:37; Start 04/12/16 at 20:00; Stop 04/12/16 at 20:01; Status DC Vancomycin HCl 1 each 1X ONCE MC ; Start 04/13/16 at 18:30; Stop 04/13/16 at 18 :30; Status DC Hydroxyzine Pamoate (Vistaril) 25 mg DAILYWSUP PO Last administered on 17:11; Start 04/13/16 at 17:00 Insulin Detemir (Levemir) 30 units DAILY SQ ; Start 04/13/16 at 09:00; Stop at 10:58; Status DC Fluconazole (Diflucan) 400 mg DAILY PO Last administered on 04/15/16 08:33; Start 04/13/16 at 11:00 Insulin Detemir (Levemir) 40 units DAILY SQ Last administered on 04/15/16 05: 10; Start 04/13/16 at 10:58 Hydrochlorothiazide (Hydrodiuril) 25 mg DAILY@05 PO Last administered on 04:57; Start 04/14/16 at 05:00 Metformin HCl (Glucophage) 1,000 mg BID@,17 PO Last administered on 04:55; Start 04/13/16 at 17:00 Metoprolol Tartrate (Lopressor) 50 mg DAILY@05 PO Last administered on 04:54; Start 04/14/16 at 05:00 Non-Formulary Medication 10 mg DAILY@05 PO Last administered on 04/15/16 04:55 ; Start 04/14/16 at 05:00 Non-Formulary Medication 1 each DAILY@05 PO Last administered on 04/15/16 04: 55; Start 04/14/16 at 05:00 Prednisone (Prednisone) 40 mg DAILY PO Last administered on 04/15/16 08:33; Start 04/14/16 at 09:00 Gadobutrol (Gadavist) 9 mmol 1X ONCE IV Last administered on 04/14/16 11:30; Start 04/14/16 at 11:30; Stop 04/14/16 at 11:31; Status DC Active Scripts Active Hydrocodone-Apap 5-325 (Hydrocodone Bit/Acetaminophen) 1 Each Tablet 1 Tab PO PRN Q6HRS PRN Prednisone 50 Mg Tablet 1 Tab PO DAILY Clindamycin Hcl 150 Mg Capsule 3 Cap PO TID 10 Days Reported Farxiga (Dapagliflozin Propanediol) 10 Mg Tablet 10 Mg PO DAILY Doxycycline Hyclate 100 Mg Capsule 1 Cap PO BID Hydroxyzine Hcl 25 Mg Tablet 1-2 Tab PO HS Glipizide 10 Mg Tablet 1 Tab PO BID Hydrochlorothiazide Tablet (Hydrochlorothiazide) 50 Mg Tablet 25 Mg PO DAILY Metoprolol Tartrate 50 Mg Tablet 1 Tab PO DAILY Gabapentin 300 Mg Capsule 300 Mg PO HS Ibuprofen 400 Mg Tablet 1 Tab PO PRN Q6HRS PRN Zyrtec (Cetirizine Hcl) 10 Mg Capsule 10 Mg PO PRN DAILY PRN Claritin (Loratadine) 10 Mg Tablet 10 Mg PO PRN DAILY PRN Jolessa (Levonorgestrel-Eth Estradiol) 1 Each Tbdspk.3mo 1 Each PO DAILY Analgesic Tablet (Aspirin/Caffeine) 1 Each Tablet 2 Each PO PRN BID PRN Reglan (Metoclopramide Hcl) 10 Mg Tablet 1 Tab PO TID PRN Cyclobenzaprine Hcl 5 Mg Tablet 5 Mg PO TID PRN Lantus Solostar (Insulin Glargine,Hum.rec.anlog) 100 Unit/1 Ml Insuln.pen 40 Unit SQ DAILY Precose (Acarbose) 100 Mg Tablet 100 Mg PO TID Metformin Hcl 1,000 Mg Tablet 1 Tab PO BID Vitals/I & O Vital Sign - Last 24 Hours 04/14/16 04/14/16 04/14/16 04/14/16 19:00 21:08 22:08 23:00 Temp 98.5 98.4 98.5 98.4 Pulse 102 102 Resp 18 18 18 B/P 144/91 138/93 Pulse Ox 93 97 O2 Delivery Room Air Room Air Room Air Room Air 04/15/16 04/15/16 04/15/16 04/15/16 03:00 04:52 04:54 07:15 Temp 98.3 98.1 98.3 98.1 Pulse 84 85 85 79 Resp 18 18 B/P 120/72 119/84 119/84 125/86 Pulse Ox 97 96 O2 Delivery Room Air Room Air Room Air 04/15/16 04/15/16 08:00 11:15 Temp 97.5 97.5 Pulse 90 Resp 20 B/P 122/91 Pulse Ox 98 O2 Delivery Room Air Room Air Intake and Output 04/14/16 04/14/16 04/15/16 15:00 23:00 07:00 Intake Total 180 ml 700 ml 240 ml Balance 180 ml 700 ml 240 ml MANISH FIGUEROA MD Apr 15, 2016 15:40
[2016-04-15 15:43] VITALS: BP 128/89
[2016-04-15] MEDS ORDERED: PRED-220 PO (15:45)
[2016-04-15] MEDS: HYDROXYZINE PAMOATE 25 MG CAPSULE PO SCH (17:00)
--- NOTE | 2016-04-16 23:49 | DS ---
DATE OF DISCHARGE: 04/15/2016 CHIEF COMPLAINT: Facial cellulitis. HOSPITAL COURSE: The patient is a 40-year-old woman who was admitted for IV treatment of what appeared to be facial cellulitis, not responding to 3 different courses of antibiotics in the past. She was seen by Dr. Catherine from Infectious Disease who suspected that the erythema was due to possibly lupus rather than infection. A trial of merrem was started without any clinical improvement. MRI of the face did show cellulitis only, no abscess. She was therefore started on steroids with improvement of her symptoms within 24 hours. Although she had had a preliminary workup for lupus in the past and had been negative, Rheumatology was curbsided and recommended further testing. The patient will follow up on an outpatient basis to receive results and discuss further approach. DISCHARGE PHYSICAL EXAMINATION: Please refer to the note from same date. DISCHARGE DISPOSITION: To home. DISCHARGE CONDITION: Improved. DISCHARGE DIAGNOSIS: facial cellulitis, suspicion for lupus. DISCHARGE MEDICATIONS: Please refer to MAR. DISCHARGE INSTRUCTIONS: The patient will follow up with PCP and see Rheumatology in the coming week. MANISH FIGUEROA MD DR: UR/nts JOB#: [id number] / [id number] YASSINE Carlson MD MTDD
== END 2016-04-15 17:00 | disposition home or self-care (01) | DRG 603 ==
LOC: ER 18:07 → 5 NORTH 18:53
PROVIDERS: ADMIT Internal Medicine; ATTEND Internal Medicine
DX: L03.211 Cellulitis of face (principal); A46 Erysipelas; E11.43 Type 2 diabetes mellitus with diabetic autonomic (poly)neuropathy; E87.6 Hypokalemia; I10 Essential (primary) hypertension; D72.829 Elevated white blood cell count, unspecified; K31.84 Gastroparesis; Z82.49 Family history of ischemic heart disease and other diseases of the circulatory system; Z88.0 Allergy status to penicillin; Z88.2 Allergy status to sulfonamides; Z88.8 Allergy status to other drugs, medicaments and biological substances; Z91.018 Allergy to other foods
CPT/HCPCS: 36415; 70543; 80048; 82947; 85027; 85651; 86141; 96365; A9585; J1815; J2185; J3370; J7030; J7040; J7512; Q0177; 99285-25

== ENCOUNTER → 2016-08-01 | Outpatient (CLI) | payer OTHER, BC ==
[~2016-08-01] MED LIST changes: +DAPA10TA PO; +DOXY100C2 PO; +GABA-586 PO; +GLIP10TA13 PO; +HYDR25TA PO; +HYDR50TA6 PO; +METF-620 PO; -METF10002 PO; +METO50TA2 PO; +PRED-220 PO
[2016-08-01 14:09] LABS: BASO # 0.1 x10^3/uL (0.0-0.2); BASO % 1 % (0-3); EOS % 2 % (0-3); HEMATOCRIT 38.6 % (36.0-47.0); HEMOGLOBIN 12.8 g/dL (12.0-15.5); LYMPH # 2.9 x10^3/uL (1.0-4.8); LYMPH % 25 % (24-48); MEAN CORPUSCULAR HEMOGLOBIN 28 pg (25-35); MEAN CORPUSCULAR HGB CONC 33 g/dL (31-37); MEAN CORPUSCULAR VOLUME 84 fL (79-100); MONO % 6 % (0-9); NEUT % 66 % (31-73); PLATELET COUNT 338 x10^3/uL (140-400); RED CELL DISTRIBUTION WIDTH 13.4 % (11.5-14.5); WHITE BLOOD COUNT 11.6 x10^3/uL (4.0-11.0)
--- NOTE | 2016-08-01 14:26 | RAD ---
Chest, 2 views, 08/01/2016: History: Preop evaluation for gastric surgery, morbid obesity Comparison is made to a study from 01/25/2014. The heart size and pulmonary vascularity are normal. The lungs are clear. There is no evidence of pleural fluid. IMPRESSION: No acute cardiopulmonary abnormality is detected.
--- NOTE | 2016-08-01 14:30 | EKG ---
[facility] [address] [place] [address] Test Date: 2016-08-01 Test Time: 14:21:32 Pat Name: CAMILLA BOLTON Department: Room: Gender: F Sexologist: : 1975 Requested By: MAJOR PEREZ Order Number: [id number] Reading MD: Measurements Intervals [place] Rate: 81 P: 29 ID: [id number] QRS: 18 QRSD: 86 T: 20 QT: 366 QTc: 426 Interpretive Statements SINUS RHYTHM QRS(T) CONTOUR ABNORMALITY CONSIDER ANTEROSEPTAL MYOCARDIAL DAMAGE POSSIBLY ABNORMAL ECG RI6.01 No previous ECG available for comparison
[2016-08-01 14:36] LABS: ALBUMIN 3.3 g/dL (3.4-5.0); ALBUMIN/GLOBULIN RATIO 0.7 (1.0-1.7); CALCIUM 9.3 mg/dL (8.5-10.1); CREATININE 0.8 mg/dL (0.6-1.0); GFR 80.3; POTASSIUM 3.9 mmol/L (3.5-5.1); TOTAL BILIRUBIN 0.6 mg/dL (0.2-1.0); TOTAL PROTEIN 7.9 g/dL (6.4-8.2)
== END | disposition home or self-care (01) ==
LOC: LAB 13:46
PROVIDERS: ATTEND Surgery
DX: Z01.818 Encounter for other preprocedural examination (principal); I10 Essential (primary) hypertension; E11.9 Type 2 diabetes mellitus without complications; E66.01 Morbid (severe) obesity due to excess calories
CPT/HCPCS: 36415; 71020; 80053; 83036; 85027; 93005

== ENCOUNTER 2016-08-19 11:07 | Emergency (ER) | payer OTHER, BC ==
[~2016-08-19] VITALS: Ht 165.1 cm; Wt 97.5 kg
[~2016-08-19 11:07] MED LIST changes: -CLIN-44 PO; +CLIN150C14 PO; -HYDR-2666 PO; +HYDR-2758 PO
[2016-08-19 11:12] VITALS: BP 139/88
[2016-08-19] MEDS ORDERED: CLIN150C14 PO (11:33)
--- NOTE | 2016-08-19 11:34 | PHYS DOC ---
Past Medical History Past Medical History: Diabetes-Type II, Hypertension Additional Past Medical Histor: dermatophytosis Past Surgical History: Additional Past Surgical Histo: D & C, laparoscopy Alcohol Use: Rarely Drug Use: None Adult General Chief Complaint Chief Complaint: WOUND CHECK HPI HPI Patient is a 40 year old female with history of hypertension and diabetes type 2 who presents today with infection on the top of the left foot. Patient states she got sunburned on the left foot 6 days ago. Patient states a blister formed over the sunburned area. She states the blister opened up 2 days ago. Patient states she noted the area has been draining yellow/greenish discharge. Patient denies any fever. Review of Systems Review of Systems Constitutional: Denies fever or chills [] Eyes: Denies change in visual acuity, redness, or eye pain [] HENT: Denies nasal congestion or sore throat [] Musculoskeletal: Denies back pain or joint pain [] Integument: Left infection Neurologic: Denies headache, focal weakness or sensory changes [] Endocrine: Denies polyuria or polydipsia [] Allergies Allergies Allergies Coded Allergies Type Severity Reaction Last Updated Verified Sulfa (Sulfonamide Antibiotics) Allergy Intermediate 04/13/16 Yes piperacillin Allergy Intermediate HIVES 04/01/16 Yes strawberry Allergy Intermediate 04/13/16 Yes tazobactam Allergy Intermediate HIVES 04/01/16 Yes Physical Exam Physical Exam Constitutional: Well developed, well nourished, no acute distress, non-toxic appearance. [] HENT: Normocephalic, atraumatic, bilateral external ears normal, oropharynx moist, no oral exudates, nose normal. [] Eyes: PERRLA, EOMI, conjunctiva normal, no discharge. [] Skin: Patient has moderate erythema to the left foot consistent with sunburn. There is a 3 x 3 open wound over the sunburned area of the left foot. No warmth to the area. +3 left pedal edema, +2 right pedal edema. Sunburned noted on the right foot. Back: No tenderness, no CVA tenderness. [] Extremities: No tenderness, no cyanosis, no clubbing, ROM intact, no edema. [] Neurologic: Alert and oriented X 3, normal motor function, normal sensory function, no focal deficits noted. [] Psychologic: Affect normal, judgement normal, mood normal. [] Current Patient Data Vital Signs Vital Signs Date Time Temp Pulse Resp B/P (MAP) Pulse Ox O2 Delivery O2 Flow Rate FiO2 08/19/16 11:12 98.4 82 20 98 Room Air 98.4 EKG EKG [] Radiology/Procedures Radiology/Procedures [] Course & Med Decision Making Course & Med Decision Making Pertinent Labs and Imaging studies reviewed. (See chart for details) Patient is in the ED with sunburn to bilateral feet and infection on the top of the left foot. Tetanus is up-to-date. Discharged with clindamycin for 10 days. Follow-up with the wound clinic as soon as she can. Dragon Disclaimer Dragon Disclaimer This electronic medical record was generated, in whole or in part, using a voice recognition dictation system. Departure Departure Impression: Primary Impression: Cellulitis of left foot Additional Impression: Sunburn Disposition: HOME, SELF-CARE Condition: STABLE Referrals: YASSINE DELANEY MD (PCP) Follow-up with your primary care doctor in one week. Call [facility] today at [phone] and set up a follow up appointment for wound care Patient Instructions: Cellulitis Additional Instructions: You have left foot infection, take antibiotics prescribed as ordered. Come back to the ED at any point symptoms worsen or you develop a fever. Call [facility] today at [phone] and set up a follow up appointment for wound care Complete your antibiotics Scripts Clindamycin Hcl (CLINDAMYCIN HCL) 150 Mg Capsule 3 CAP PO TID, #90 CAP Prov: LO ALANIZ APRN 08/19/16 Problem Qualifiers LO ALANIZ APRN Aug 19, 2016 11:34
== END 2016-08-19 11:45 | disposition home or self-care (01) ==
LOC: ER 11:07
DX: L03.116 Cellulitis of left lower limb (principal); L55.9 Sunburn, unspecified; E11.9 Type 2 diabetes mellitus without complications; I10 Essential (primary) hypertension; B35.9 Dermatophytosis, unspecified; Z88.1 Allergy status to other antibiotic agents; Z88.2 Allergy status to sulfonamides; Z91.018 Allergy to other foods
CPT/HCPCS: 99283

== ENCOUNTER → 2016-08-22 | Outpatient (CLI) | payer OTHER, BC ==
[2016-08-19 11:12] VITALS: BP 139/88
== END | disposition home or self-care (01) ==
LOC: PMGWOUND 12:19
PROVIDERS: ATTEND Emergency Medicine Undersea and Hyperbaric Medicine
DX: T25.022D Burn of unspecified degree of left foot, subsequent encounter (principal); E11.9 Type 2 diabetes mellitus without complications; I10 Essential (primary) hypertension; E66.01 Morbid (severe) obesity due to excess calories; Z68.35 Body mass index [BMI] 35.0-35.9, adult; X08.8XXD Exposure to other specified smoke, fire and flames, subsequent encounter
CPT/HCPCS: 99204; 99214

== ENCOUNTER → 2016-09-27 | Outpatient (CLI) | payer OTHER, BC | END | disposition home or self-care (01) | LOC: LAB 07:52 | PROVIDERS: ATTEND Internal Medicine Rheumatology | DX: M25.50 Pain in unspecified joint (principal) | CPT/HCPCS: 36415; 85651; 86140 ==

== ENCOUNTER → 2017-03-24 | Outpatient (CLI) | payer OTHER, BC ==
[2017-03-24 09:24] LABS: SEDIMENTATION RATE 27 (0-25)
[2017-03-24 09:27] LABS: C-REACTIVE PROTEIN 20.2 mg/L (0-3.3)
== END | disposition home or self-care (01) ==
LOC: LAB 06:39
DX: M35.9 Systemic involvement of connective tissue, unspecified (principal)
CPT/HCPCS: 36415; 85651; 86140

== ENCOUNTER → 2017-04-28 | Day surgery (SDC) | payer OTHER, BC ==
[~2017-04-28] MED LIST changes: -ACAR100T9 PO; -ASPI1TAB PO; -CETI10CA PO; -CLIN150C14 PO; -CYCL5TAB PO; -DAPA10TA PO; +DEXAMETHASONE SOD PHOS 20 MG/5 ML VIAL.; -DOXY100C2 PO; -GABA-586 PO; -GLIP10TA13 PO; -HYDR-2758 PO; -HYDR25TA PO; -HYDR50TA6 PO; +HYDROcodone/APAP 7.5/325MG 1 TAB TABLET PO; +HYDROmorphone 2 MG/ML VIAL IV; -IBUP-1027 PO; -INSU100I13 SQ; -LEVO1TBD PO; +LIDOCAINE 1% PF 2 ML VIAL. ID; +LIDOCAINE 2% PF Vial for OR 5 ML VIAL.; -LORA10TA68 PO; -METF-620 PO; -METO10TA81 PO; -METO50TA2 PO; +MORPHINE SULFATE 4 MG/ML DISP.SYRIN. IV; +ONDANSETRON PF 4 MG/2 ML VIAL.; +ONDANSETRON PF 4 MG/2 ML VIAL. IV; -PRED-220 PO; -PRED50TA PO; +PROCHLORPERAZINE 10 MG/2 ML VIAL. IV; +PROPOFOL 20 ML IV; +SEVOFLURANE 16 TO 30 MINUTES. IH; +fentaNYL PF VIAL 100 MCG/2 ML VIAL; +fentaNYL PF VIAL 100 MCG/2 ML VIAL IV
[2017-04-28] MEDS: IV RINGERS,LACTATED 1000ML 1,000 ML IV (11:49)
[2017-04-28] MEDS: CLINDAMYCIN 900MG PREMIX 50 ML IV (12:33)
[2017-04-28] MEDS: BUPIVACAINE-EPI 0.25%-1:200000 50 ML VIAL. (12:41)
[2017-04-28 13:12] LABS: NEG OBC UR NEG; POS OBC UR POS; U PREG PATIENT NEGATIVE (NEG)
[2017-04-28] MEDS: fentaNYL PF VIAL 100 MCG/2 ML VIAL IV (13:37)
[2017-04-28] MEDS: KETOROLAC 30 MG/ML INJ. IV (13:58)
[2017-04-28] MEDS: HYDROcodone/APAP 7.5/325MG 1 TAB TABLET PO (13:58)
== END ==
LOC: SURG 11:05
DX: M67.431 Ganglion, right wrist (principal); E11.9 Type 2 diabetes mellitus without complications; M19.90 Unspecified osteoarthritis, unspecified site; I10 Essential (primary) hypertension; Z88.2 Allergy status to sulfonamides; Z88.0 Allergy status to penicillin; Z98.890 Other specified postprocedural states; Z88.1 Allergy status to other antibiotic agents; Z91.018 Allergy to other foods; Z88.8 Allergy status to other drugs, medicaments and biological substances; Z87.891 Personal history of nicotine dependence; Z83.3 Family history of diabetes mellitus; Z82.49 Family history of ischemic heart disease and other diseases of the circulatory system; Z87.442 Personal history of urinary calculi; Z87.440 Personal history of urinary (tract) infections
CPT/HCPCS: 25111; 81025; 88304; J1100; J1885; J2405; J2704; J3010; J3490

== ENCOUNTER → 2017-05-26 | Outpatient (CLI) | payer OTHER, BC ==
[2017-05-26 11:49] LABS: ANION GAP 11 (6-14); BLOOD UREA NITROGEN 15 mg/dL (7-20); CALCIUM 9.5 mg/dL (8.5-10.1); CARBON DIOXIDE 27 mmol/L (21-32); CHLORIDE 101 mmol/L (98-107); CHOLESTEROL 169 mg/dL (0-200); CHOLESTEROL/HDL RATIO 3.1; CREATININE 0.9 mg/dL (0.6-1.0); GFR 69.7; GLUCOSE 206 mg/dL (70-99); HDLC 55 mg/dL (40-60); LDLC 85 mg/dL (0-100); NON-HDL CHOLESTEROL 114 mg/dL (0-129); POTASSIUM 3.9 mmol/L (3.5-5.1); SODIUM 139 mmol/L (136-145); TRIGLYCERIDES 147 mg/dL (0-150); VLDLC 29 mg/dL (0-40)
[2017-05-28 01:07] LABS: HEMOGLOBIN A1C 7.1 % (4.8-5.6)
== END | disposition home or self-care (01) ==
LOC: LAB 11:09
DX: E11.9 Type 2 diabetes mellitus without complications (principal)
CPT/HCPCS: 36415; 80048; 80061; 83036

== ENCOUNTER → 2018-02-13 | Outpatient (CLI) | payer OTHER, BC ==
[2017-08-21 11:00] VITALS: BP 107/74
[~2018-02-13] MED LIST changes: +ACAR100T9 PO; +ASPI1TAB PO; +CETI10CA PO; +CLIN150C14 PO; +CYCL5TAB PO; +DAPA10TA PO; -DEXAMETHASONE SOD PHOS 20 MG/5 ML VIAL.; +DOXY100C2 PO; +GABA300C18 PO; +GLIP10TA13 PO; +HYDR-2761 PO; +HYDR-2765 PO; +HYDR200T71 PO; +HYDR25TA PO; +HYDR50TA6 PO; -HYDROcodone/APAP 7.5/325MG 1 TAB TABLET PO; -HYDROmorphone 2 MG/ML VIAL IV; +IBUP-1027 PO; +INSU100I13 SQ; +L-NO1TBD5 PO; +LEVO1TBD PO; -LIDOCAINE 1% PF 2 ML VIAL. ID; -LIDOCAINE 2% PF Vial for OR 5 ML VIAL.; +LORA10TA68 PO; +METF10007 PO; +METO10TA81 PO; +METO25TA4 PO; +METO50TA6 PO; -MORPHINE SULFATE 4 MG/ML DISP.SYRIN. IV; +MULT1TAB52 PO; -ONDANSETRON PF 4 MG/2 ML VIAL.; -ONDANSETRON PF 4 MG/2 ML VIAL. IV; +PRED-220 PO; +PRED20TA PO; +PRED50TA PO; -PROCHLORPERAZINE 10 MG/2 ML VIAL. IV; -PROPOFOL 20 ML IV; -SEVOFLURANE 16 TO 30 MINUTES. IH; -fentaNYL PF VIAL 100 MCG/2 ML VIAL; -fentaNYL PF VIAL 100 MCG/2 ML VIAL IV
[2018-02-13 16:46] LABS: BASO # 0.1 x10^3/uL (0.0-0.2); BASO % 1 % (0-3); EOS % 1 % (0-3); HEMOGLOBIN 13.7 g/dL (12.0-15.5); LYMPH # 2.8 x10^3/uL (1.0-4.8); LYMPH % 39 % (24-48); MEAN CORPUSCULAR HEMOGLOBIN 31 pg (25-35); MEAN CORPUSCULAR HGB CONC 35 g/dL (31-37); MEAN CORPUSCULAR VOLUME 87 fL (79-100); MONO # 0.6 x10^3/uL (0.0-1.1); MONO % 8 % (0-9); NEUT # 3.8 x10^3uL (1.8-7.7); NEUT % 52 % (31-73); PLATELET COUNT 300 x10^3/uL (140-400); RED BLOOD COUNT 4.49 x10^6/uL (3.50-5.40); RED CELL DISTRIBUTION WIDTH 11.7 % (11.5-14.5); WHITE BLOOD COUNT 7.3 x10^3/uL (4.0-11.0)
[2018-02-13 17:27] LABS: ALBUMIN 3.8 g/dL (3.4-5.0); ALBUMIN/GLOBULIN RATIO 0.8 (1.0-1.7); C-REACTIVE PROTEIN 5.6 mg/L (0-3.3); CALCIUM 9.9 mg/dL (8.5-10.1); CREATININE 0.9 mg/dL (0.6-1.0); GFR 69.3; POTASSIUM 3.9 mmol/L (3.5-5.1); TOTAL BILIRUBIN 0.9 mg/dL (0.2-1.0); TOTAL PROTEIN 8.3 g/dL (6.4-8.2)
[2018-02-13 17:28] LABS: CHOLESTEROL/HDL RATIO 3.2
[2018-02-14 00:12] LABS: HEMOGLOBIN A1C 6.9 % (4.8-5.6)
== END | disposition home or self-care (01) ==
LOC: LAB 15:37
PROVIDERS: ATTEND Internal Medicine
DX: M33.10 Other dermatomyositis, organ involvement unspecified (principal); E11.9 Type 2 diabetes mellitus without complications
CPT/HCPCS: 80053; 80061; 82306; 82607; 82728; 82746; 83036; 85025; 85651; 86140

== ENCOUNTER → 2018-02-28 | Outpatient (CLI) | payer OTHER, BC ==
[2017-08-21 11:00] VITALS: BP 107/74
[2018-02-28 18:10] LABS: THYROPEROXIDASE ANTIBODY 23 IU/mL (0-34)
== END | disposition home or self-care (01) ==
LOC: LAB 10:49
PROVIDERS: ATTEND Internal Medicine
DX: L65.8 Other specified nonscarring hair loss (principal)
CPT/HCPCS: 36415; 86376; 86800

== ENCOUNTER → 2018-02-28 | Outpatient (CLI) | payer OTHER, BC ==
[2017-08-21 11:00] VITALS: BP 107/74
--- NOTE | 2018-02-28 11:42 | RAD ---
EXAM: Right hand, 3 views. HISTORY: Polyarthralgia. COMPARISON: None. FINDINGS: 3 views of the right hand are obtained. There is first carpometacarpal joint space narrowing with degenerative spurring and bony remodeling. There are chronic fragmented spurs adjacent to the joint space. The remainder of the joint spaces are unremarkable. No soft tissue lesion is seen. There is a chronic corticated ossicle along the dorsal wrist at the level of the carpometacarpal joints and the lateral projection, likely developmental or due to a chronic nonunited fracture fragment. IMPRESSION: 1. 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 2. No acute osseous finding. Electronically signed by: Shanita Reddy MD (02/28/2018 11:37 AM) [facility]
== END | disposition home or self-care (01) ==
LOC: LAB 10:45
PROVIDERS: ATTEND Internal Medicine Rheumatology
DX: M18.11 Unilateral primary osteoarthritis of first carpometacarpal joint, right hand (principal); L65.8 Other specified nonscarring hair loss
CPT/HCPCS: 73130

== ENCOUNTER → 2018-03-23 | Outpatient (CLI) | payer OTHER, BC ==
[2017-08-21 11:00] VITALS: BP 107/74
--- NOTE | 2018-03-27 07:33 | RAD ---
DATE: 03/23/2018 EXAM: MAMMO TONY SCREENING BILATERAL HISTORY: Screening Mammogram COMPARISON: None, this is a baseline. This study was interpreted with the benefit of Computerized Aided Detection (CAD). The breast parenchyma shows scattered fibroglandular densities. Breast parenchyma level B. FINDINGS: Bilateral digital 2-D and 3-D tomosynthesis CC and MLO views. No suspicious mass, calcification or architectural distortion. No significant change from prior examination IMPRESSION: No mammographic evidence of malignancy. Recommend routine screening mammogram in 12 months. BI-RADS CATEGORY: 1 NEGATIVE RECOMMENDED FOLLOW-UP: 12M 12 MONTH FOLLOW-UP PQRS compliance statement: Patient information was entered into a reminder system with a target due date for the next mammogram. Mammography is a sensitive method for finding small breast cancers, but it does not detect them all and is not a substitute for careful clinical examination. A negative mammogram does not negate a clinically suspicious finding and should not result in delay in biopsying a clinically suspicious abnormality. "Our facility is accredited by the [employer] Mammography Program."
== END | disposition home or self-care (01) ==
LOC: MAMMO 14:46
PROVIDERS: ATTEND Internal Medicine
DX: Z12.31 Encounter for screening mammogram for malignant neoplasm of breast (principal)
CPT/HCPCS: 77063; 77067

== ENCOUNTER → 2019-04-05 | Outpatient (CLI) | payer OTHER ==
[2017-08-21 11:00] VITALS: BP 107/74
[2019-04-05 08:20] LABS: BASO # 0.1 x10^3/uL (0.0-0.2); BASO % 1 % (0-3); EOS # 0.1 x10^3/uL (0.0-0.7); EOS % 2 % (0-3); HEMATOCRIT 39.7 % (36.0-47.0); HEMOGLOBIN 13.6 g/dL (12.0-15.5); LYMPH # 1.7 x10^3/uL (1.0-4.8); LYMPH % 30 % (24-48); MEAN CORPUSCULAR HEMOGLOBIN 30 pg (25-35); MEAN CORPUSCULAR HGB CONC 34 g/dL (31-37); MEAN CORPUSCULAR VOLUME 86 fL (79-100); MONO # 0.4 x10^3/uL (0.0-1.1); MONO % 7 % (0-9); NEUT # 3.5 x10^3/uL (1.8-7.7); NEUT % 61 % (31-73); PLATELET COUNT 284 x10^3/uL (140-400); RED BLOOD COUNT 4.59 x10^6/uL (3.50-5.40); RED CELL DISTRIBUTION WIDTH 11.8 % (11.5-14.5); WHITE BLOOD COUNT 5.7 x10^3/uL (4.0-11.0)
[2019-04-05 09:18] LABS: ALBUMIN 3.4 g/dL (3.4-5.0); ALBUMIN/GLOBULIN RATIO 0.9 (1.0-1.7); CALCIUM 9.1 mg/dL (8.5-10.1); CREATININE 0.9 mg/dL (0.6-1.0); POTASSIUM 3.9 mmol/L (3.5-5.1); TOTAL BILIRUBIN 1.1 mg/dL (0.2-1.0); TOTAL PROTEIN 7.2 g/dL (6.4-8.2)
[2019-04-05 09:27] LABS: CHOLESTEROL/HDL RATIO 2.9
[2019-04-05 23:08] LABS: HEMOGLOBIN A1C 6.7 % (4.8-5.6)
[2019-04-09 19:09] LABS: METHYLMALONIC ACID 90 nmol/L (0-378)
== END | disposition home or self-care (01) ==
LOC: LAB 07:16
PROVIDERS: ATTEND Internal Medicine
DX: M33.90 Dermatopolymyositis, unspecified, organ involvement unspecified (principal); E11.9 Type 2 diabetes mellitus without complications; Z98.890 Other specified postprocedural states
CPT/HCPCS: 36415; 80053; 80061; 82306; 82525; 82607; 82728; 82746; 83036; 83921; 84425; 84630; 85025; 85651

== ENCOUNTER 2019-08-19 13:17 | Emergency (ER) | payer OTHER ==
[~2019-08-19] VITALS: Ht 165.1 cm; Wt 70.4 kg
[~2019-08-19 13:17] MED LIST changes: +MULT-445 PO; -MULT1TAB52 PO
[2019-08-19] MEDS ORDERED: cefTRIAXone IV Push 1 GM VIAL. IVP ONE (14:00)
[2019-08-19] MEDS ORDERED: METR500T PO (14:56)
--- NOTE | 2019-08-19 14:56 | PHYS DOC ---
Past Medical History Past Medical History: Diabetes-Type II, Hypertension, Other Additional Past Medical Histor: DERMATOCYTOSITIS Past Surgical History: Other Additional Past Surgical Histo: GASTRIC SLEEVE, D & C, WRIST SX Smoking Status: Former Smoker Alcohol Use: Occasionally Drug Use: None General Adult EDM: Chief Complaint: SKIN PROBLEM HPI: HPI: Patient is a 43-year-old female well-known to me presents with cellulitis of the face and left upper arm. She states couple days ago she was bitten and scratched by a cat. She has been taking Augmentin but her rash is continuing to get a little worse. Especially the scratch on her left cheek. She states she has been admitted for something similar in the past. Currently she denies any fever. Review of Systems: Review of Systems: Constitutional: Denies fever or chills. [] Musculoskeletal: Denies back pain or joint pain. [] Integument: Per HPI [] Heart Score: Risk Factors: Risk Factors: DM, Current or recent (<one month) smoker, HTN, HLP, family history of CAD, obesity. Risk Scores: Score 0 - 3: 2.5% MACE over next 6 weeks - Discharge Home Score 4 - 6: 20.3% MACE over next 6 weeks - Admit for Clinical Observation Score 7 - 10: 72.7% MACE over next 6 weeks - Early Invasive Strategies Current Medications: Current Medications Medications (Trade) Dose Ordered Sig/Ryley Start Time Stop Time Status Last Admin Dose Admin Ceftriaxone Sodium (Rocephin) 2 gm 1X ONCE 08/19/19 14:00 08/19/19 14:08 DC 08/19/19 14:21 2 GM Metronidazole 100 ml @ 100 mls/hr 1X ONCE 08/19/19 14:00 08/19/19 14:59 08/19/19 14:22 100 MLS/HR Allergies: Allergies: Allergies Coded Allergies Type Severity Reaction Last Updated Verified lisinopril Allergy Severe ANGIOEDEMA 04/28/17 Yes Sulfa (Sulfonamide Antibiotics) Allergy Intermediate 04/28/17 Yes nickel Allergy Intermediate Rash 04/28/17 Yes piperacillin Allergy Intermediate HIVES 04/28/17 Yes strawberry Allergy Intermediate 04/28/17 Yes tazobactam Allergy Intermediate HIVES 04/28/17 Yes mupirocin Allergy Unknown UNKNOWN 08/19/19 Yes Physical Exam: PE: Constitutional: Well developed, well nourished, no acute distress, non-toxic appearance. [] HENT: See physical exam on skin, atraumatic, bilateral external ears normal, oropharynx moist, no oral exudates, nose normal. [] Eyes: PERRLA, EOMI, conjunctiva normal, no discharge. [] Skin: Linear area of erythema on the left cheek that passes from just lateral to the nose through the nasolabial cleft that has some vesicles and surrounding erythema there is a tiny pustule on the left deltoid with surrounding erythema. [] Back: No tenderness, no CVA tenderness. [] Extremities: No tenderness, no cyanosis, no clubbing, ROM intact, no edema. [] Psychologic: Affect normal, judgement normal, mood normal. [] Current Patient Data: Vital Signs: Vital Signs Date Time Temp Pulse Resp B/P (MAP) Pulse Ox O2 Delivery O2 Flow Rate FiO2 08/19/19 13:20 98.0 78 19 119/79 (92) 97 Room Air 98.0 EKG: EKG: [] Radiology/Procedures: Radiology/Procedures: [] Course & Med Decision Making: Course & Med Decision Making Pertinent Labs and Imaging studies reviewed. (See chart for details) [] Dragon Disclaimer: Dragon Disclaimer: This electronic medical record was generated, in whole or in part, using a voice recognition dictation system. Departure Departure Impression: Primary Impression: Cat bite Qualified Codes: W55.01XA - Bitten by cat, initial encounter Additional Impression: Cat scratch Disposition: HOME, SELF-CARE Condition: STABLE Referrals: YASSINE DELANEY MD (PCP) Patient Instructions: Animal Bite Additional Instructions: Come back to the emergency department tomorrow for another shot of ceftriaxone if the redness is no better Scripts Dexamethasone (Decadron) 4 Mg Tablet 1 TAB PO BID for 3 Days, #6 TAB 0 Refills Prov: EDDIE ECHEVERRIA DO 08/19/19 Metronidazole (FLAGYL) 500 Mg Tablet 500 MG PO TID for cat bite/scratch, #30 TAB Prov: EDDIE ECHEVERRIA DO 08/19/19 Justicifation of Admission Dx: Justifications for Admission: Justification of Admission Dx: No EDDIE ECHEVERRIA DO Aug 19, 2019 14:56
[2019-08-19] MEDS ORDERED: DEXA4TAB63 PO (15:25)
[2019-08-19 15:30] VITALS: BP 121/71
== END 2019-08-19 15:37 | disposition home or self-care (01) ==
LOC: ER 13:17
DX: S00.81XA Abrasion of other part of head, initial encounter (principal); L03.211 Cellulitis of face; R21 Rash and other nonspecific skin eruption; L53.9 Erythematous condition, unspecified; L03.114 Cellulitis of left upper limb; E11.9 Type 2 diabetes mellitus without complications; I10 Essential (primary) hypertension; Z98.890 Other specified postprocedural states; Z87.891 Personal history of nicotine dependence; Z88.6 Allergy status to analgesic agent; Z88.2 Allergy status to sulfonamides; Z91.018 Allergy to other foods; Z88.8 Allergy status to other drugs, medicaments and biological substances; W55.01XA Bitten by cat, initial encounter; Y93.89 Activity, other specified; Y92.89 Other specified places as the place of occurrence of the external cause; Y99.8 Other external cause status
CPT/HCPCS: 96374; 99283; J0696; J3490

== ENCOUNTER 2019-08-20 13:05 | Emergency (ER) | payer OTHER ==
[~2019-08-20] VITALS: Ht 165.1 cm; Wt 70.4 kg
[~2019-08-20 13:05] MED LIST changes: +DEXA4TAB63 PO; +METR500T PO
[2019-08-20 13:20] VITALS: BP 133/81
--- NOTE | 2019-08-20 13:58 | PHYS DOC ---
Past Medical History Past Medical History: Diabetes-Type II, Hypertension, Other Additional Past Medical Histor: DERMATOCYTOSITIS Past Surgical History: Other Additional Past Surgical Histo: GASTRIC SLEEVE, D & C, WRIST SX Smoking Status: Former Smoker Additional Information: quit smoking 2010 Alcohol Use: Occasionally Drug Use: None General Adult EDM: Chief Complaint: CELLULITIS HPI: HPI: Patient is a 43-year-old female who returns today for an IV antibiotic injection after she has been scratched and bitten by a cat. She was started on Augmentin has been taking Flagyl p.o. received IV Rocephin yesterday and another injection was due today. She states the redness has dried up some especially on the face she was able to squeeze some purulent material out of the wound on her left shoulder area she has not had any fevers. She is also been started on dexamethasone and her blood sugars been 330 at home. [] Review of Systems: Review of Systems: Constitutional: Denies fever or chills. [] Integument: Per HPI [] Endocrine: Reports hyperglycemia [] Heart Score: Risk Factors: Risk Factors: DM, Current or recent (<one month) smoker, HTN, HLP, family history of CAD, obesity. Risk Scores: Score 0 - 3: 2.5% MACE over next 6 weeks - Discharge Home Score 4 - 6: 20.3% MACE over next 6 weeks - Admit for Clinical Observation Score 7 - 10: 72.7% MACE over next 6 weeks - Early Invasive Strategies Current Medications: Current Medications Medications (Trade) Dose Ordered Sig/Ryley Start Time Stop Time Status Last Admin Dose Admin Ceftriaxone Sodium (Rocephin) 1 gm 1X ONCE 08/20/19 14:00 08/20/19 14:01 08/20/19 13:40 1 GM Allergies: Allergies: Allergies Coded Allergies Type Severity Reaction Last Updated Verified lisinopril Allergy Severe ANGIOEDEMA 04/28/17 Yes Sulfa (Sulfonamide Antibiotics) Allergy Intermediate 04/28/17 Yes nickel Allergy Intermediate Rash 04/28/17 Yes piperacillin Allergy Intermediate HIVES 08/20/19 Yes strawberry Allergy Intermediate 04/28/17 Yes tazobactam Allergy Intermediate HIVES 04/28/17 Yes mupirocin Allergy Unknown UNKNOWN 08/19/19 Yes Physical Exam: PE: Constitutional: Well developed, well nourished, no acute distress, non-toxic appearance. [] Skin: Some erythema on the left cheek in the same area as yesterday however it appears to be improving the wound on her left shoulder is all but dried up. [] Back: No tenderness, no CVA tenderness. [] Psychologic: Affect normal, judgement normal, mood normal. [] Current Patient Data: Vital Signs: Vital Signs Date Time Temp Pulse Resp B/P (MAP) Pulse Ox O2 Delivery O2 Flow Rate FiO2 08/20/19 13:20 98.6 78 16 133/81 (98) 99 Room Air 98.6 EKG: EKG: [] Radiology/Procedures: Radiology/Procedures: [] Course & Med Decision Making: Course & Med Decision Making Pertinent Labs and Imaging studies reviewed. (See chart for details) [] Dragon Disclaimer: Dragon Disclaimer: This electronic medical record was generated, in whole or in part, using a voice recognition dictation system. Departure Departure Impression: Primary Impression: Cat bite Qualified Codes: W55.01XD - Bitten by cat, subsequent encounter Disposition: HOME, SELF-CARE Condition: STABLE Referrals: YASSINE DELANEY MD (PCP) Patient Instructions: Animal Bite Additional Instructions: Continue the Augmentin, dexamethasone and Flagyl as directed Justicifation of Admission Dx: Justifications for Admission: Justification of Admission Dx: No EDDIE ECHEVERRIA DO Aug 20, 2019 13:58
[2019-08-20] MEDS ORDERED: cefTRIAXone IV Push 1 GM VIAL. IVP ONE (14:00)
== END 2019-08-20 14:07 | disposition home or self-care (01) ==
LOC: ER 13:05
DX: S41.002A Unspecified open wound of left shoulder, initial encounter (principal); L53.8 Other specified erythematous conditions; E11.65 Type 2 diabetes mellitus with hyperglycemia; I10 Essential (primary) hypertension; Z87.891 Personal history of nicotine dependence; Z88.1 Allergy status to other antibiotic agents; Z88.8 Allergy status to other drugs, medicaments and biological substances; Z91.018 Allergy to other foods; W55.01XA Bitten by cat, initial encounter; Y93.89 Activity, other specified; Y92.89 Other specified places as the place of occurrence of the external cause; Z88.2 Allergy status to sulfonamides; Y99.8 Other external cause status
CPT/HCPCS: 96374; 99283; J0696

== ENCOUNTER → 2019-11-18 | Outpatient (CLI) | payer OTHER ==
[2019-11-18 12:04] LABS: CHOLESTEROL/HDL RATIO 2.5
[2019-11-19 00:08] LABS: HEMOGLOBIN A1C 6.2 % (4.8-5.6)
== END | disposition home or self-care (01) ==
LOC: LAB 10:55
PROVIDERS: ATTEND Internal Medicine
DX: E11.9 Type 2 diabetes mellitus without complications (principal); F41.9 Anxiety disorder, unspecified; Z13.228 Encounter for screening for other metabolic disorders
CPT/HCPCS: 36415; 80061; 83036; 84443

== ENCOUNTER → 2019-12-13 | Outpatient (CLI) | payer OTHER ==
--- NOTE | 2019-12-13 10:46 | RAD ---
CHEST PA LATERAL History: Pleurisy Comparison: August 01, 2016 Findings: 2 views of the chest are submitted. There is no infiltrate, pneumothorax, or effusion. Pericardial cardiac silhouette is within normal limits in size. Impression: 1. There is no radiographic evidence of acute cardiopulmonary disease. Electronically signed by: Gilbert Smith MD (12/13/2019 10:43 AM) [facility]
== END ==
LOC: RAD 10:15
PROVIDERS: ATTEND Internal Medicine
DX: R09.1 Pleurisy (principal)
CPT/HCPCS: 71046

== ENCOUNTER → 2020-02-10 | Outpatient (CLI) | payer OTHER | LOC: LAB 14:13 | PROVIDERS: ATTEND Internal Medicine Pulmonary Disease | DX: R05 Cough (principal); R09.81 Nasal congestion; Z20.828 Contact with and (suspected) exposure to other viral communicable diseases | CPT/HCPCS: U0003 ==

== ENCOUNTER 2020-04-28 09:19 | Emergency (ER) | payer OTHER ==
[~2020-04-28] VITALS: Ht 165.1 cm; Wt 68.1 kg
[~2020-04-28 09:19] MED LIST changes: -CLIN150C14 PO; +CLIN150C15 PO; -HYDR50TA6 PO; +HYDR50TA9 PO
[2020-04-28] MEDS ORDERED: cefTRIAXone IV Push 1 GM VIAL. IVP ONE (10:30)
[2020-04-28] MEDS ORDERED: methylPREDNISolone SOD SUCC PF 125 MG/2 ML VIAL. IV ONE (10:30)
[2020-04-28 10:34] LABS: BASO # 0.1 x10^3/uL (0.0-0.2); BASO % 1 % (0-3); EOS # 0.1 x10^3/uL (0.0-0.7); EOS % 1 % (0-3); HEMATOCRIT 38.3 % (36.0-47.0); HEMOGLOBIN 13.1 g/dL (12.0-15.5); LYMPH # 1.9 x10^3/uL (1.0-4.8); LYMPH % 24 % (24-48); MEAN CORPUSCULAR HEMOGLOBIN 30 pg (25-35); MEAN CORPUSCULAR HGB CONC 34 g/dL (31-37); MEAN CORPUSCULAR VOLUME 88 fL (79-100); MONO # 0.4 x10^3/uL (0.0-1.1); MONO % 5 % (0-9); NEUT # 5.4 x10^3/uL (1.8-7.7); NEUT % 68 % (31-73); PLATELET COUNT 270 x10^3/uL (140-400); RED BLOOD COUNT 4.34 x10^6/uL (3.50-5.40); RED CELL DISTRIBUTION WIDTH 11.7 % (11.5-14.5); WHITE BLOOD COUNT 7.9 x10^3/uL (4.0-11.0)
[2020-04-28 11:04] LABS: CALCIUM 8.9 mg/dL (8.5-10.1); CREATININE 0.9 mg/dL (0.6-1.0); GFR 68.7; POTASSIUM 3.9 mmol/L (3.5-5.1)
[2020-04-28 11:37] VITALS: BP 118/77
[2020-04-28] MEDS ORDERED: METH4TAB PO (11:51)
[2020-04-28] MEDS ORDERED: DOXY100C2 PO (11:51)
--- NOTE | 2020-04-28 11:51 | PHYS DOC ---
Past Medical History Past Medical History: Diabetes-Type II, Hypertension, Other Additional Past Medical Histor: DERMATOSITIS Past Surgical History: Other Additional Past Surgical Histo: GASTRIC SLEEVE, D & C, WRIST SX Smoking Status: Former Smoker Additional Information: QUIT SMOKING 2010 Alcohol Use: Occasionally Drug Use: None General Adult EDM: Chief Complaint: CELLULITIS HPI: HPI: Patient is a 44 year old female who presented to ER for evaluation of 48-hour history cellulitis on the area behind the back of her right knee. Patient has history of dermatomyositis that she would require IV antibiotic. Patient also has history of hypertension diabetic. Patient says she may have been scratched by her dog on the back of her knee 2 days ago. The area has been swelling and redness with some clear drainage fluid. Her dog is up-to-date on her vaccination status. Patient denies any chest pain, no trouble breathing. Review of Systems: Review of Systems: Constitutional: Denies fever or chills. [] Eyes: Denies change in visual acuity. [] HENT: Denies nasal congestion or sore throat. [] Respiratory: Denies cough or shortness of breath. [] Cardiovascular: Denies chest pain or edema. [] GI: Denies abdominal pain, nausea, vomiting, bloody stools or diarrhea. [] : Denies dysuria. [] Musculoskeletal: Denies back pain or joint pain. [] Integument: Positive for skin irritation on the back of her right knee. Neurologic: Denies headache, focal weakness or sensory changes. [] Endocrine: Denies polyuria or polydipsia. [] Lymphatic: Denies swollen glands. [] Psychiatric: Denies depression or anxiety. [] Heart Score: Risk Factors: Risk Factors: DM, Current or recent (<one month) smoker, HTN, HLP, family history of CAD, obesity. Risk Scores: Score 0 - 3: 2.5% MACE over next 6 weeks - Discharge Home Score 4 - 6: 20.3% MACE over next 6 weeks - Admit for Clinical Observation Score 7 - 10: 72.7% MACE over next 6 weeks - Early Invasive Strategies Current Medications: Current Medications Medications (Trade) Dose Ordered Sig/Ryley Start Time Stop Time Status Last Admin Dose Admin Ceftriaxone Sodium (Rocephin) 1 gm 1X ONCE 04/28/20 10:30 04/28/20 10:31 DC 04/28/20 10:33 1 GM Methylprednisolone Sodium Succinate (SOLU-Medrol 125MG VIAL) 125 mg 1X ONCE 04/28/20 10:30 04/28/20 10:31 DC 04/28/20 10:28 125 MG Allergies: Allergies: Allergies Coded Allergies Type Severity Reaction Last Updated Verified Sulfa (Sulfonamide Antibiotics) Allergy Severe sob 04/28/20 Yes lisinopril Allergy Severe ANGIOEDEMA 04/28/20 Yes strawberry Allergy Severe sob 04/28/20 Yes mupirocin Allergy Intermediate rash 04/28/20 Yes nickel Allergy Intermediate Rash 04/28/20 Yes piperacillin Allergy Intermediate HIVES 04/28/20 Yes tazobactam Allergy Intermediate HIVES 04/28/20 Yes Physical Exam: PE: Constitutional: Well developed, well nourished, no acute distress, non-toxic appearance. [] HENT: Normocephalic, atraumatic, nose normal. [] Eyes: PERRLA, EOMI, conjunctiva normal, no discharge. [] Cardiovascular:Heart rate regular rhythm, no murmur [] Lungs & Thorax: Bilateral breath sounds clear to auscultation [] Skin: Warm, there is erythema and streaking erythema on the back of her right knee with clear drainage. Extremities: No tenderness, no cyanosis, no clubbing, ROM intact, no edema. Neurologic: Alert and oriented X 3, normal motor function, normal sensory function, no focal deficits noted. [] Psychologic: Affect normal, judgement normal, mood normal. [] Current Patient Data: Labs: Laboratory Tests Test 04/28/20 10:15 White Blood Count 7.9 x10^3/uL (4.0-11.0) Red Blood Count 4.34 x10^6/uL (3.50-5.40) Hemoglobin 13.1 g/dL (12.0-15.5) Hematocrit 38.3 % (36.0-47.0) Mean Corpuscular Volume 88 fL (79-100) Mean Corpuscular Hemoglobin 30 pg (25-35) Mean Corpuscular Hemoglobin Concent 34 g/dL (31-37) Red Cell Distribution Width 11.7 % (11.5-14.5) Platelet Count 270 x10^3/uL (140-400) Neutrophils (%) (Auto) 68 % (31-73) Lymphocytes (%) (Auto) 24 % (24-48) Monocytes (%) (Auto) 5 % (0-9) Eosinophils (%) (Auto) 1 % (0-3) Basophils (%) (Auto) 1 % (0-3) Neutrophils # (Auto) 5.4 x10^3/uL (1.8-7.7) Lymphocytes # (Auto) 1.9 x10^3/uL (1.0-4.8) Monocytes # (Auto) 0.4 x10^3/uL (0.0-1.1) Eosinophils # (Auto) 0.1 x10^3/uL (0.0-0.7) Basophils # (Auto) 0.1 x10^3/uL (0.0-0.2) Sodium Level 138 mmol/L (136-145) Potassium Level 3.9 mmol/L (3.5-5.1) Chloride Level 100 mmol/L (98-107) Carbon Dioxide Level 24 mmol/L (21-32) Anion Gap 14 (6-14) Blood Urea Nitrogen 13 mg/dL (7-20) Creatinine 0.9 mg/dL (0.6-1.0) Estimated GFR (Cockcroft-Gault) 68.7 Glucose Level 152 mg/dL (70-99) H Calcium Level 8.9 mg/dL (8.5-10.1) C-Reactive Protein, Quantitative 7.6 mg/L (0-3.3) H Laboratory Tests 04/28/20 10:15 Laboratory Tests 04/28/20 10:15 Vital Signs: Vital Signs Date Time Temp Pulse Resp B/P (MAP) Pulse Ox O2 Delivery O2 Flow Rate FiO2 04/28/20 11:37 74 16 118/77 (91) 96 Room Air 04/28/20 09:29 97.3 97.3 EKG: EKG: [] Radiology/Procedures: Radiology/Procedures: [] Course & Med Decision Making: Course & Med Decision Making Pertinent Labs and Imaging studies reviewed. (See chart for details) Patient is a 44-year-old female with history of dermatomal myositis, presented to ER due to inflammation of the back of her right knee consistent with cellulitis after dog scratch. Patient was given IV Rocephin in the ER,, patient was also given IV steroid in ER. Patient was discharged home with prescription for doxycycline. Patient is scheduled to see her family physician today at 3 PM. Victor Manuel Disclaimer: Victor Manuel Disclaimer: This electronic medical record was generated, in whole or in part, using a voice recognition dictation system. Departure Departure Impression: Primary Impression: Cellulitis of right lower leg Disposition: 01 DC HOME SELF CARE/HOMELESS Condition: STABLE Referrals: YASSINE DELANEY MD (PCP) Please follow up with your doctor as scheduled as 3 pm today Patient Instructions: Cellulitis Additional Instructions: Thank you for visiting our Emergency Department. We appreciate you trusting us with your care. If any additional problems come up don't hesitate to return to visit us. Please follow up with your primary care provider so they can plan additional care if needed and know about the problem that you had. If symptoms worsen come back to the Emergency Department. Any concerning symptoms that start such as chest pain, shortness of air, weakness or numbness on one side of the body, running high fevers or any other concerning symptoms return to the ER. Scripts Methylprednisolone (MEDROL) 4 Mg Tablet 4 MG PO UD, #21 TAB Prov: PATRIA SANDERS DO 04/28/20 Doxycycline Hyclate (DOXYCYCLINE HYCLATE) 100 Mg Capsule 1 CAP PO BID, #20 CAP Prov: PATRIA SANDERS DO 04/28/20 PATRIA SANDERS DO Apr 28, 2020 11:51
== END 2020-04-28 11:52 | disposition home or self-care (01) ==
LOC: ER 09:19
DX: L03.115 Cellulitis of right lower limb (principal); R60.0 Localized edema; E11.9 Type 2 diabetes mellitus without complications; I10 Essential (primary) hypertension; F17.200 Nicotine dependence, unspecified, uncomplicated; Z98.890 Other specified postprocedural states; Z88.2 Allergy status to sulfonamides; Z91.018 Allergy to other foods; Z88.1 Allergy status to other antibiotic agents; Z88.8 Allergy status to other drugs, medicaments and biological substances
CPT/HCPCS: 36415; 80048; 85025; 86140; 96374; 96375; 99284; J0696; J2930